=== PATIENT | female | born 1980 | race Caucasian/White ===

== ENCOUNTER 2016-08-07 03:17 | Inpatient (IN) | payer BC ==
[~2016-08-07] VITALS: Ht 170.2 cm; Wt 89.4 kg
[~2016-08-07 03:17] MED LIST: CLON0.5T3 PO; ESCI1TAB10 PO; MELO7.5T5 PO
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
[2016-08-07 04:30] LABS: BASO % 0.5 %; BASO ABS # 0.05 K/uL (0-0.2); COMPLETE YES; EOS % 1.2 %; IG% 0.2 %; LYMPH % 24.6 %; LYMPH ABS # 2.49 K/uL (1.2-3.4); MEAN CELL VOLUME 90.3 fL (80-100); MEAN CORPUSCULAR HEMOGLOBIN 32.2 pg (25-34); MEAN CORPUSCULAR HGB CONC 35.6 g/dl (32-36); MEAN PLATELET VOLUME 11.7 fL (7.4-10.4); MONO % 9.7 %; NEUT % 63.8 %; PLATELET COUNT 243 K/uL (130-400); RED BLOOD COUNT 4.32 M/uL (4.2-5.4); WHITE BLOOD COUNT 10.11 K/uL (4.8-10.8)
[2016-08-07 04:32] LABS: URINE APPEARANCE CLEAR (CLEAR); URINE BILIRUBIN NEG (NEG); URINE COLOR YELLOW; URINE NITRITE NEG (NEG); URINE SPECIFIC GRAVITY 1.004 (1.000-1.030); UROBILINOGEN NEG (NEG); ZZUR CULT IF INDIC CLEAN CATCH NO
[2016-08-07 04:35] LABS: MANUAL MICROSCOPIC REQUIRED? NO; REVIEW REQ? NO
[2016-08-07 04:54] LABS: ALT/SGPT 15 U/L (12-78); AST/SGOT 11 U/L (15-37); BLOOD UREA NITROGEN 12 mg/dl (7-18); BUN/CREATININE RATIO 17.2 (10-20); CALCIUM 9.2 mg/dl (8.5-10.1); CARBON DIOXIDE 21 mmol/L (21-32); CHLORIDE 109 mmol/L (98-107); CREATININE 0.68 mg/dl (0.60-1.20); GLUCOSE 103 mg/dl (70-99); POTASSIUM 3.4 mmol/L (3.5-5.1); SODIUM 142 mmol/L (136-145)
[2016-08-07 04:57] LABS: ALKALINE PHOSPHATASE 68 U/L (45-117)
[2016-08-07 05:01] LABS: ACETAMINOPHEN < 2 ug/ml (10-30)
[2016-08-07 05:07] LABS: BENZODIAZEPINE, URINE NEG (NEG); COCAINE,URINE NEG (NEG); PHENCYCLIDINE, URINE NEG (NEG)
[2016-08-07 07:09] VITALS: O2SAT 95
[2016-08-07] MEDS ORDERED: NURSING VERBAL MED ORDER ONE ×2 (07:30→07:45)
[2016-08-07] MEDS ORDERED: BISMUTH SUBSALICYLATE PER ML OMNICELL CHARGE PO PRN (08:30)
[2016-08-07] MEDS ORDERED: MAGNESIUM HYDROXIDE SUSP 30 ML UDC PO PRN (08:30)
[2016-08-07] MEDS ORDERED: CLONAZEPAM 0.5 MG TAB PO PRN ×2 (08:30→22:00)
[2016-08-07] MEDS ORDERED: ACETAMINOPHEN 325 MG TAB PO PRN (08:30)
[2016-08-07] MEDS ORDERED: SODIUM CHLORIDE 0.65% NA SOLN 45 ML (OCEAN) PRN (08:30)
[2016-08-07] MEDS ORDERED: hydrOXYzine HCL 25 MG TAB PO PRN ×2 (08:30)
[2016-08-07] MEDS ORDERED: ALUMINUM/MAGNESIUM SUSP 30 ML UDC PO PRN (08:30)
[2016-08-07 08:52] VITALS: BP 133/78; PULSE 121; TEMP 36.7; Ht 170.2 cm; Wt 89.4 kg
[2016-08-07] MEDS: ESCITALOPRAM OXALATE 20 MG TAB PO SCH (14:11)
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
[2016-08-07] MEDS: DOXEPIN HCL 10 MG CAP PO SCH (21:29)
[2016-08-08 07:12] VITALS: BP_SYST 103; BP_SYST 107; BP_DIAS 62; BP_DIAS 68; PULSE 67; PULSE 74; TEMP 36.6
[2016-08-08] MEDS: ESCITALOPRAM OXALATE 20 MG TAB PO SCH (09:01)
[2016-08-08] MEDS: MELOXICAM 7.5 MG TAB PO PRN ×2 (09:04→22:11)
--- NOTE | 2016-08-08 18:26 | Psychiatric Progress Notes ---
Progress Note Date of Service Aug 08, 2016. Interval History Siri Yang is a 36-year-old female who currently lives in [place] with her boyfriend. Siri Yang was admitted on a 201 voluntary commitment. Patient is admitted from [facility] ED. The patient was brought to the ED after she presented herself for worsening depression with suicidal ideations. Chief Complaint "I worked very hard today". Subjective Patient was seen & assessed interval progress reviewed with Treatment Team She slept 6.5hours overnight and appreciated the doxepin stating she felt she got rest and denies SE. 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 SHe again reverts to peseverating on the poor environment and her poor treatment at work but is more easily redirected today. She rates mood as a 5/10 and anxiety as 5/10 as well. She denies SI today but states "I need to get some of these things more secure because I am afraid if I feel overwhelmed again the hopelessness and suicidality will surge." Review of Systems constipation - "I was going daily prior to coming here but my outpatient doc tells me to take miralax if I get backed up" last BM two days ago, history of chronic constipation and megacolon. No abdominal pain Sleep Information Total Hours of Sleep: 6.50 Meal Information Percent of Breakfast Consumed: 100 Percent of Lunch Consumed: 100 Percent of Dinner Consumed: 100 Mental Status Exam During interview pt is: alert and oriented Appearance: appropriately dressed, disheveled (sitting in the quiet room on the floor mattress with wadded tissues quietly, minimal attention to personal detal but is clean and dressed) Eye contact is: fair Motor behavior is: steady gait & station Speech: normal in rate, rhythm & volume Affect: mood congruent, blunted Mood is: depressed, anxious Thought process: goal directed, perseveration (on work situation but more easily redirectable today) Thought content: preoccupation Suicidal thought are: denied, Plan: denied, Intent: denied Homicidal thoughts are: denied Hallucinations: denies auditory, denies visual Cognition: memory grossly intact Intelligence estimated to be: average Insight: limited Judgement: limited Impression Patient is a 36yo with chronic major depression and PTSD who is acutely depressed with worsening of chronic Si to include intention and plan, perseveration on her work sitauation externalizing and difficulty discussing any other aspect of her person at this time. She is voluntary for inpatient care. Continued Inpatient Care inpatient care is leas restrictive and most appropriate given we need to affirm aftercare assist with firming up her plans regarding her job and encouraging patient to act as that is the major precipitant to her SI and presentation Plan (1) Suicidal ideation - inpatient care is least restrictive and most appropriate setting for care - miliue, group and safety planning - attempt to address additional problems noted below (2) Major depressive disorder, recurrent episode with anxious distress 08/07/16 - patient declines increase of lexapro from 20mg to 30mg, and declines augmentation with wellbutrin but states she will consider - offered doxepin to assist wtih sleep, discussed r/b/se/a and she agreed to 10mg/hs dose in place of vistaril which she reported was not previously helpful - she is focussed on support helping her leave work in a supported way (e.g. asks about a prior intensive outpatient support or temporary disability) noted we would help her to make decisions within available options such as FMLA, OVR or psych rehab and/or career link 08/08/16 continue plan as above, she denies further med changes today (3) Benzodiazepine abuse it is unclear if she has been overusing she states she has not, will request records from Dr Huerta and given patient 's report of only getting 10 pills between appt will limit access here to one pil bid prn anxiety (4) Nicotine dependence offered NRT and she declined Brief counseling for smoking cessation given, patient is pre-contemplational about quitting at this time. (5) Chronic constipation 08/07/16 no acute intervention, recommend consistent activity and dietary choices that include fiber 08/08/16 will order miralax Discharge / Aftercare Planning Primary Care Physician: Name: dr shayna sims Psychiatrist: Name: dr henrique monsalve Therapist: Name: cosmo bolden Visit Code E&M Code: 73363 Inventory Assets Strengths: voluntary for care states she has been compliant with her lexapro and therapy Needs: support efforts to increase her locus of control Risk Factors Assessment : Yes /single/: Yes Higher / Fall in social status: No Health problems: Yes Mental Health Diagnoses: Yes Substance use disorders: Yes Previous attempt: Yes Previous attempt;highly lethal: No Previous attempt; planned: Yes Previous attempt; didn't tell: No Family history of suicide: No Previous psychiatric stay: Yes Hopelessness: Yes Smoker: Yes Protective Factors Assessment Mu-Ism beliefs: No : No Responsible for young children: No Employed: No Stable relationships: No Supportive family: No Good rapport with provider: Yes Data Vital Signs Last 24 Hrs: Date Time Temp Pulse Resp B/P Pulse Ox O2 Delivery O2 Flow Rate FiO2 08/08/16 07:12 36.6 67 16 107/62 74 103/68 Meds Administered Last 24 Hrs: Meds Administered (Past 24Hrs) Medications (Trade) Dose Ordered Sig/Sanam Route Start Time Stop Time Status Last Admin Dose Admin Acetaminophen (Tylenol Tab) 650 mg Q4H PRN PO 08/07/16 08:30 09/06/16 08:29 08/07/16 14:12 650 MG Escitalopram Oxalate (Lexapro Tab) 20 mg DAILY PO 08/07/16 09:00 09/06/16 08:59 08/08/16 09:01 20 MG Clonazepam (Klonopin Tab) 0.5 mg TID PRN PO 08/07/16 08:30 08/07/16 17:05 DC 08/07/16 08:32 0.5 MG Meloxicam (Mobic Tab) 7.5 mg DAILY PRN PO 08/07/16 08:30 09/06/16 08:29 08/08/16 09:04 7.5 MG Doxepin HCl (Sinequan Cap) 10 mg HS PO 08/07/16 22:00 09/06/16 21:59 08/07/16 21:29 10 MG Problem Qualifiers (1) Nicotine dependence: Nicotine product type: cigarettes
[2016-08-08] MEDS ORDERED: POLYETHYLENE (MIRALAX) 17 GM PACK PO PRN (21:15)
[2016-08-08] MEDS: DOXEPIN HCL 10 MG CAP PO SCH (22:11)
[2016-08-09 07:05] VITALS: BP_SYST 102; BP_SYST 97; BP_DIAS 63; BP_DIAS 69; PULSE 6; PULSE 84; TEMP 36.8
[2016-08-09] MEDS: ESCITALOPRAM OXALATE 20 MG TAB PO SCH (09:24)
[2016-08-09] MEDS: MELOXICAM 7.5 MG TAB PO PRN (09:26)
--- NOTE | 2016-08-09 12:21 | Psychiatric Progress Notes ---
Progress Note Date of Service Aug 09, 2016. Interval History Siri Yang is a 36-year-old female who currently lives in [place] with her boyfriend. Siri Yang was admitted on a 201 voluntary commitment. Patient is admitted from [facility] ED. The patient was brought to the ED after she presented herself for worsening depression with suicidal ideations. Chief Complaint "I've tried so hard. ". Subjective Patient was seen & assessed interval progress reviewed with Treatment Team. The patient is feeling hopeless, defeated today as she thinks about leaving her job. She reviews the stressors and the opposition she has met, feeling like there is no way she could advance in her current position given the dynamics in her office. She would like to take some time off to regroup and focus on herself. She would like to go back to [place] and retake some courses to build her confidence while she considers her job prospects. she lives with her boyfriend whom she describes as very support of her leaving her stressful job. She says that she wants to work, but also knows that she is not ready to jump right back into it now. She denies any further SI, but is feeling depressed and hopeless and does not feel ready for discharge at this time. Review of Systems Constitutional: No chills, No fatigue, No fever, No problem reported, No sweats , No weakness, No weight loss ENT: No dental problems, No hearing loss, No nasal symptoms, No problem reported, No sore throat, No tinnitus, No trouble swallowing, No unusual epistaxis Respiratory: No cough, No dyspnea at rest, No dyspnea on exertion, No hemoptysis, No problem reported, No shortness of breath, No sputum, No wheezing Cardiovascular: No PND, No chest pain, No claudication, No edema, No orthopnea , No palpitations, No problem reported Abdomen: No GI bleeding, No constipation, No diarrhea, No nausea, No pain, No problem reported, No vomiting Musculoskeletal: No calf pain, No joint pain, No muscle pain, No problem reported, No swelling Neurologic: No balance problems, No memory loss, No numbness/tingling, No paralysis, No problem reported, No vertigo, No weakness Psychiatric: + anxiety, + depression symptoms Integumentary: No bleeding, No color change, No itch, No new/changing skin lesions, No problem reported, No rash Sleep Information Total Hours of Sleep: 6.00 Meal Information Percent of Breakfast Consumed: 100 Percent of Lunch Consumed: 100 Percent of Dinner Consumed: 100 Mental Status Exam During interview pt is: alert and oriented Appearance: appropriately dressed, disheveled (sitting in the quiet room on the floor mattress with wadded tissues quietly, minimal attention to personal detal but is clean and dressed) Eye contact is: fair Motor behavior is: steady gait & station Speech: normal in rate, rhythm & volume Affect: mood congruent, blunted Mood is: depressed, anxious Thought process: goal directed, perseveration (on work situation but more easily redirectable today) Thought content: preoccupation Suicidal thought are: denied, Plan: denied, Intent: denied Homicidal thoughts are: denied Hallucinations: denies auditory, denies visual Cognition: memory grossly intact Intelligence estimated to be: average Insight: limited Judgement: limited Impression The patient is hopeless, depressed today, thinking about quitting her job. She denies SI but feels fragile and not ready for discharge today. She would like to stay another day and process with staff, which seems reasonable. Continue current meds. Continued Inpatient Care inpatient care is leas restrictive and most appropriate given we need to affirm aftercare assist with firming up her plans regarding her job and encouraging patient to act as that is the major precipitant to her SI and presentation Plan (1) Suicidal ideation - inpatient care is least restrictive and most appropriate setting for care - miliue, group and safety planning - attempt to address additional problems noted below 08/09 - Continue current meds -Q 15 min checks for safety - Encourage group and individual therapy. (2) Major depressive disorder, recurrent episode with anxious distress 08/07/16 - patient declines increase of lexapro from 20mg to 30mg, and declines augmentation with wellbutrin but states she will consider - offered doxepin to assist wtih sleep, discussed r/b/se/a and she agreed to 10mg/hs dose in place of vistaril which she reported was not previously helpful - she is focussed on support helping her leave work in a supported way (e.g. asks about a prior intensive outpatient support or temporary disability) noted we would help her to make decisions within available options such as FMLA, OVR or psych rehab and/or career link 08/08/16 continue plan as above, she denies further med changes today (3) Benzodiazepine abuse it is unclear if she has been overusing she states she has not, will request records from Dr Huerta and given patient 's report of only getting 10 pills between appt will limit access here to one pil bid prn anxiety (4) Nicotine dependence offered NRT and she declined Brief counseling for smoking cessation given, patient is pre-contemplational about quitting at this time. (5) Chronic constipation 08/07/16 no acute intervention, recommend consistent activity and dietary choices that include fiber 08/08/16 will order miralax Discharge / Aftercare Planning Primary Care Physician: Name: dr shayna sims Psychiatrist: Name: dr henrique monsalve Therapist: Name: cosmo bolden Visit Code E&M Code: 14538 Inventory Assets Strengths: voluntary for care states she has been compliant with her lexapro and therapy Needs: support efforts to increase her locus of control Risk Factors Assessment : Yes /single/: Yes Higher / Fall in social status: No Health problems: Yes Mental Health Diagnoses: Yes Substance use disorders: Yes Previous attempt: Yes Previous attempt;highly lethal: No Previous attempt; planned: Yes Previous attempt; didn't tell: No Family history of suicide: No Previous psychiatric stay: Yes Hopelessness: Yes Smoker: Yes Protective Factors Assessment Sabianist beliefs: No : No Responsible for young children: No Employed: No Stable relationships: No Supportive family: No Good rapport with provider: Yes Data Vital Signs Last 24 Hrs: Date Time Temp Pulse Resp B/P Pulse Ox O2 Delivery O2 Flow Rate FiO2 08/09/16 07:05 36.8 6 16 97/63 84 102/69 Meds Administered Last 24 Hrs: Meds Administered (Past 24Hrs) Medications (Trade) Dose Ordered Sig/Sanam Route Start Time Stop Time Status Last Admin Dose Admin Doxepin HCl (Sinequan Cap) 10 mg HS PO 08/07/16 22:00 09/06/16 21:59 08/08/16 22:11 10 MG Lab Results Last 24 Hrs: 08/07/16 03:42 Red Blood Count 4.32, Mean Corpuscular Volume 90.3, Mean Corpuscular Hemoglobin 32.2, Mean Corpuscular Hemoglobin Concent 35.6, Mean Platelet Volume 11.7, Neutrophils (%) (Auto) 63.8, Lymphocytes (%) (Auto) 24.6, Monocytes (%) (Auto) 9.7, Eosinophils (%) (Auto) 1.2, Basophils (%) (Auto) 0.5, Neutrophils # (Auto) 6.45, Lymphocytes # (Auto) 2.49, Monocytes # (Auto) 0.98, Eosinophils # (Auto) 0.12, Basophils # (Auto) 0.05 08/07/16 03:42 Test 08/07/16 03:42 White Blood Count 10.11 K/uL (4.8-10.8) Red Blood Count 4.32 M/uL (4.2-5.4) Hemoglobin 13.9 g/dL (12.0-16.0) Hematocrit 39.0 % (37-47) Mean Corpuscular Volume 90.3 fL (80-100) Mean Corpuscular Hemoglobin 32.2 pg (25-34) Mean Corpuscular Hemoglobin Concent 35.6 g/dl (32-36) Platelet Count 243 K/uL (130-400) Mean Platelet Volume 11.7 fL (7.4-10.4) Neutrophils (%) (Auto) 63.8 % Lymphocytes (%) (Auto) 24.6 % Monocytes (%) (Auto) 9.7 % Eosinophils (%) (Auto) 1.2 % Basophils (%) (Auto) 0.5 % Neutrophils # (Auto) 6.45 K/uL (1.4-6.5) Lymphocytes # (Auto) 2.49 K/uL (1.2-3.4) Monocytes # (Auto) 0.98 K/uL (0.11-0.59) Eosinophils # (Auto) 0.12 K/uL (0-0.5) Basophils # (Auto) 0.05 K/uL (0-0.2) RDW Standard Deviation 40.0 fL (36.4-46.3) RDW Coefficient of Variation 12.2 % (11.5-14.5) Immature Granulocyte % (Auto) 0.2 % Immature Granulocyte # (Auto) 0.02 K/uL (0.00-0.02) Urine Color YELLOW Urine Appearance CLEAR (CLEAR) Urine pH 5.0 (4.5-7.5) Urine Specific [place] 1.004 (1.000-1.030) Urine Protein NEG (NEG) Urine Glucose (UA) NEG (NEG) Urine Ketones NEG (NEG) Urine Occult Blood NEG (NEG) Urine Nitrite NEG (NEG) Urine Bilirubin NEG (NEG) Urine Urobilinogen NEG (NEG) Urine Leukocyte Esterase TRACE (NEG) Urine WBC (Auto) 1-5 /hpf (0-5) Urine RBC (Auto) 0-4 /hpf (0-4) Urine Hyaline Casts (Auto) 0 /lpf (0-5) Urine Epithelial Cells (Auto) 10-20 /lpf (0-5) Urine Bacteria (Auto) NEG (NEG) Anion Gap 12.0 mmol/L (3-11) Est Creatinine Clear Calc Drug Dose 131.3 ml/min Estimated GFR () 130.4 Estimated GFR (Non- 112.5 BUN/Creatinine Ratio 17.2 (10-20) Calcium Level 9.2 mg/dl (8.5-10.1) Total Bilirubin 0.3 mg/dl (0.2-1) Direct Bilirubin < 0.1 mg/dl (0-0.2) Aspartate Amino Transf (AST/SGOT) 11 U/L (15-37) Alanine Aminotransferase (ALT/SGPT) 15 U/L (12-78) Alkaline Phosphatase 68 U/L (45-117) Total Protein 8.1 gm/dl (6.4-8.2) Albumin 4.4 gm/dl (3.4-5.0) Salicylates Level < 1.7 mg/dl (2.8-20) Urine Opiates Screen NEG (NEG) Urine Methadone, Qualitative NEG (NEG) Acetaminophen Level < 2 ug/ml (10-30) Urine Barbiturates NEG (NEG) Urine Phencyclidine (PCP) Level NEG (NEG) Ur Amphetamine/Methamphetamine NEG (NEG) MDMA (Ecstasy) Screen NEG (NEG) Urine Benzodiazepines Screen NEG (NEG) Urine Cocaine Metabolite NEG (NEG) Urine Marijuana (THC) NEG (NEG) Ethyl Alcohol mg/dL 101.0 mg/dl (0-3) Problem Qualifiers (1) Nicotine dependence: Nicotine product type: cigarettes
[2016-08-09] MEDS: DOXEPIN HCL 10 MG CAP PO SCH (22:15)
[2016-08-09] MEDS ORDERED: NURSING VERBAL MED ORDER ONE (22:30)
[2016-08-09] MEDS ORDERED: MELOXICAM 7.5 MG TAB PO STA (22:32)
[2016-08-10 06:58] VITALS: BP_SYST 100; BP_SYST 98; BP_DIAS 57; BP_DIAS 64; PULSE 62; PULSE 82; TEMP 36.6
[2016-08-10] MEDS: ESCITALOPRAM OXALATE 20 MG TAB PO SCH (08:46)
[2016-08-10] MEDS ORDERED: SNQ10 PO (09:32)
[2016-08-10] MEDS ORDERED: CLON0.5T3 PO (09:32)
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
[2016-08-12 14:30] LABS: SYNTHETIC CANNABINOIDS QL URIN NEGATIVE (Negative)
== END 2016-08-10 11:42 | disposition home or self-care (01) | DRG 885 ==
LOC: C.EDB 03:19 → C.MHU 07:59
PROVIDERS: ADMIT Psychiatry & Neurology Psychiatry; ATTEND Psychiatry & Neurology Psychiatry
DX: F33.9 Major depressive disorder, recurrent, unspecified (principal); R45.851 Suicidal ideations; F13.20 Sedative, hypnotic or anxiolytic dependence, uncomplicated; F43.10 Post-traumatic stress disorder, unspecified; F41.9 Anxiety disorder, unspecified; E66.9 Obesity, unspecified; K59.09 Other constipation; F17.200 Nicotine dependence, unspecified, uncomplicated; Z68.30 Body mass index [BMI] 30.0-30.9, adult; Z79.899 Other long term (current) drug therapy; Z79.1 Long term (current) use of non-steroidal anti-inflammatories (NSAID)

== ENCOUNTER → 2017-01-24 | Outpatient (CLI) | payer OTHER ==
[~2017-01-24] MED LIST changes: +SNQ10 PO
--- NOTE | 2017-01-24 16:50 | DIAGNOSTIC IMAGING REPORT ---
CHEST 2 VIEWS ROUTINE HISTORY: COUGH COMPARISON: None. FINDINGS: The lungs are clear. Cardiac silhouette is normal in size. No pleural effusions. No pneumothorax. Mild pectus excavatum deformity. IMPRESSION: No acute process. Electronically signed by: Félix Shaikh M.D. 01/24/2017 4:49 PM Dictated Date/Time: 01/24/2017 4:35 PM
== END | disposition home or self-care (01) ==
LOC: C.RADBC 16:26
PROVIDERS: ATTEND Physician Assistant Medical
DX: R05 Cough (principal)

== ENCOUNTER → 2017-02-01 | Outpatient (CLI) | payer OTHER ==
[~2017-02-01] MED LIST changes: +GADAVIST IV PRN
--- NOTE | 2017-02-01 08:51 | DIAGNOSTIC IMAGING REPORT ---
MRI OF THE BRAIN COMBO INTERNAL ARTERY CANAL PROTOCOL CLINICAL HISTORY: Vertigo. Nausea. COMPARISON STUDY: CT of the brain dated 11/29/2012. TECHNIQUE: MRI of the brain was performed utilizing various T1 and T2-weighted sequences in the axial, sagittal, and coronal planes. Contrast-enhanced sequences were acquired following the administration of 8.5 cc of Gadavist. Additional high-resolution imaging was performed through the skull base both pre and postcontrast for assessment of the internal artery canals. FINDINGS: Brain parenchyma: The brain parenchyma is normal in appearance. There is no hemorrhage or mass effect. There is no restricted diffusion to suggest acute ischemia. No enhancing mass lesion is identified on the postcontrast images. Núñez-white matter differentiation is preserved. No extra-axial fluid collection is seen. The cerebellar tonsils are normal in configuration. Ventricles, sulci, and cisterns: Normal in configuration. Internal auditory canals: There is no enhancing mass lesion identified in the cerebellopontine angle. No mass lesion or abnormal enhancement is identified along the course of the internal auditory canals. The middle ear structures are normal as visualized. Pituitary and sella: Unremarkable. Intracranial vasculature: Normal flow voids are maintained at the skull base. Orbits: The bony orbits are grossly intact. Orbital contents are normal in appearance. Sinuses and mastoids: Clear. Calvarium: Unremarkable. Cervical cord: Partially visualized cervical spinal cord is normal in morphology and signal intensity. IMPRESSION: 1. No acute intracranial abnormality. 2. Unremarkable MRI assessment of the internal artery canals. Electronically signed by: Reed Goncalves M.D. 02/01/2017 8:50 AM Dictated Date/Time: 02/01/2017 8:45 AM
== END | disposition home or self-care (01) ==
LOC: C.MRIBC 07:31
PROVIDERS: ATTEND Physician Assistant Medical
DX: R42 Dizziness and giddiness (principal)

== ENCOUNTER → 2017-03-01 | Outpatient (CLI) | payer OTHER ==
[~2017-03-01] MED LIST changes: -GADAVIST IV PRN
[2017-03-01 11:19] LABS: BASO % 0.6 %; BASO ABS # 0.06 K/uL (0-0.2); COMPLETE YES; EOS % 1.7 %; HEMATOCRIT 39.9 % (37-47); IG% 0.2 %; LYMPH % 27.4 %; LYMPH ABS # 2.58 K/uL (1.2-3.4); MEAN CORPUSCULAR HEMOGLOBIN 32.6 pg (25-34); MEAN CORPUSCULAR HGB CONC 34.3 g/dl (32-36); MEAN PLATELET VOLUME 11.9 fL (7.4-10.4); MONO % 7.9 %; NEUT % 62.2 %; PLATELET COUNT 232 K/uL (130-400); WHITE BLOOD COUNT 9.41 K/uL (4.8-10.8)
[2017-03-01 14:28] LABS: ALT/SGPT 17 U/L (12-78); BLOOD UREA NITROGEN 10 mg/dl (7-18); BUN/CREATININE RATIO 14.6 (10-20); CALCIUM 9.3 mg/dl (8.5-10.1); CARBON DIOXIDE 25 mmol/L (21-32); CHLORIDE 110 mmol/L (98-107); GLUCOSE 95 mg/dl (70-99); SODIUM 140 mmol/L (136-145)
[2017-03-01 14:38] LABS: ALKALINE PHOSPHATASE 58 U/L (45-117); AST/SGOT 14 U/L (15-37)
== END | disposition home or self-care (01) ==
LOC: C.LABBC 09:17
PROVIDERS: ATTEND Physician Assistant Medical
DX: R55 Syncope and collapse (principal)

== ENCOUNTER → 2017-08-01 | Outpatient (CLI) | payer OTHER | END | disposition home or self-care (01) | LOC: C.PAPS 12:05 | PROVIDERS: ATTEND Physician Assistant Medical | DX: Z00.00 Encounter for general adult medical examination without abnormal findings (principal); Z12.4 Encounter for screening for malignant neoplasm of cervix ==

== ENCOUNTER 2018-09-04 12:38 | Inpatient (IN) ==
[2018-09-04 13:33] LABS: Basophils # (auto) 0.05 K/uL (0-0.2); Basophils % (auto) 0.6 %; Eosinophils # (auto) 0.14 K/uL (0-0.5); Eosinophils % (auto) 1.8 %; Hematocrit (blood only) 40.9 % (37-47); Hemoglobin 14.5 g/dL (12.0-16.0); Immature Granulocytes # (auto) 0.02 K/uL (0.00-0.02); Immature Granulocytes % (auto) 0.3 %; Lymphocytes # (auto) 2.32 K/uL (1.2-3.4); Lymphocytes % (auto) 30.1 %; Mean Corpuscular Hgb Conc 35.5 g/dL (32-36); Mean Corpuscular Volume 92.3 fL (80-100); Mean Platelet Volume 11.1 fL (7.4-10.4); Monocytes # (auto) 0.54 K/uL (0.11-0.59); Neutrophils # (auto) 4.64 K/uL (1.4-6.5); Neutrophils % (auto) 60.2 %; Platelet Count 299 K/uL (130-400); RDW Coefficient of Variation 12.3 % (11.5-14.5); RDW Standard Deviation 41.7 fL (36.4-46.3); Red Blood Count 4.43 M/uL (4.2-5.4); White Blood Count 7.71 K/uL (4.8-10.8)
[2018-09-04 13:50] LABS: BUN Creatinine Ratio 15.5 (10-20); Calcium 9.3 mg/dl (8.5-10.1); Creatinine Clr Calc Pharmacy 127.8 ml/min; Est GFR (African American) 130.5; Est GFR (Non-African American) 112.6; Potassium 3.8 mmol/L (3.5-5.1)
[2018-09-04 14:00] LABS: Bilirubin,Total 0.5 mg/dl (0.2-1); Globulin 4.1 gm/dl (2.5-4.0); Total Protein 8.1 gm/dl (6.4-8.2)
[2018-09-04 14:11] LABS: Acetaminophen < 2 ug/ml (10-30); Salicylate < 1.7 mg/dl (2.8-20)
[2018-09-04 14:16] LABS: Appearance Urine Clear (Clear); Bilirubin Urine Negative (Negative); Blood Urine Negative (Negative); Color Urine Yellow; Glucose Urine UA Negative (Negative); Ketones Urine Negative (Negative); Leukocyte Esterase Urine Negative (Negative); Nitrite Urine Negative (Negative); Protein Urine Negative (Negative); Specific Gravity Urine 1.023 (1.000-1.030); Urobilinogen Urine Negative (Negative)
[2018-09-04 14:23] LABS: Amphetamines+Metham, Urine Neg (Neg); Barbiturates, Urine Neg (Neg); Benzodiazepine, Urine Neg (Neg); Cocaine, Urine Neg (Neg); MDMA (Ecstacy), Urine Neg (Neg); Methadone, Urine Neg (Neg); Opiate, Urine Neg (Neg); Phencyclidine, Urine Neg (Neg)
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
[2018-09-04] MEDS ORDERED: ALUMINUM/MAGNESIUM SUSP 30 ML UDC PO PRN (15:39)
[2018-09-04] MEDS ORDERED: BISMUTH SUBSALICYLATE PER ML OMNICELL CHARGE PO PRN (15:39)
[2018-09-04] MEDS ORDERED: SODIUM CHLORIDE 0.65% NA SOLN 45 ML (OCEAN) PRN (15:39)
[2018-09-04] MEDS ORDERED: MAGNESIUM HYDROXIDE SUSP 30 ML UDC PO PRN (15:39)
[2018-09-04 18:11] VITALS: O2SAT 96
[2018-09-04] MEDS: ACETAMINOPHEN 325 MG TAB PO PRN (23:03)
[2018-09-05] MEDS: TRINTELLIX: ORDER AWAITING ACTION SCH ×3 (00:51→16:51)
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
[2018-09-05] MEDS: MELOXICAM 7.5 MG TAB PO PRN (11:18)
[2018-09-05] MEDS: POLYETHYLENE (MIRALAX) 17 GM PACK PO PRN (20:55)
[2018-09-05] MEDS: VORTIOXETINE HYDROBROMIDE PO SCH (21:32)
[2018-09-06] MEDS: POLYETHYLENE (MIRALAX) 17 GM PACK PO PRN ×2 (09:11→17:50)
[2018-09-06] MEDS: MELOXICAM 7.5 MG TAB PO PRN (11:21)
--- NOTE | 2018-09-06 11:26 | Psychiatric Progress Note ---
Date of Service September 06, 2018 Impression / Recommendations Impression Is attending all programming and attempting to incorporate coping strategies but still struggling with depressed mood and SI. Has had multiple trials of Wellbutrin in the past without benefit so see no need to try again. She is willing to explore the idea of going for longer term inpatient treatment, but this would have to be accomplised as an OP given the length of time it takes to process. Will continue with current meds and plan. (1) Major depressive disorder, recurrent episode with anxious distress: 09/05 -continue voluntary admission with suicide checks for safety. -Participate in groups and therapy, work on healthy coping skills and a discharge safety plan. -Coordinate with outpatient treatment team, including PA for recent medication trials. -Family meeting with boyfriend, and review safety plan. Specifically recommend medications in the home are locked and secured, so the patient will not have access to large amounts of pills, given her chronic suicidal ideation and history of multiple suicide attempts by overdose. Also recommend that guns be secured (although patient says they are not fireable in their current state as are antiques). -Per policy, medicinal [facility] -Continue home dose of vortixetine 20 mg at bedtime. BF bringing it in today. Discussed possibility of a trial of lithium for chronic SI and mood, but patient is reluctant, stating she doesn't like medications. She also expresses interest in maybe returning to escitalopram as it was helpful in the past. -Patient interested in exploring option of trauma program at [facility] - she doesn't feel able to contact her insurance to find out if it is covered, but is open to getting additional information. 09/06 - Assist the patient to explore insurance coverage of [facility] hospitalization - Continue current meds. Present on Admission?: Yes (2) PTSD (post-traumatic stress disorder): 09/05 - Continue home dose of vortioxetine. Consider switch to SSRI as above. -Patient is currently in trauma therapy, and discussed that actively working on her traumas and therapy can exacerbate symptoms in the short-term, but the long- term goal is to address these issues so that symptoms will decrease and functioning will improve. 09/06 - Explore and encourage mindfulness and grounding Present on Admission?: Yes (3) Constipation: 09/05 - Encourage high fiber diet, sufficient water intake, milk of magnesia prn. (4) Foot pain: 09/05 -patient may have shoes on unit per her request, as this helps with tendon problems/foot pain. Inventory Assets Strengths: Significant outpatient treatment/services, supportive boyfriend, stable housing Needs: Improved symptom control/functioning Risk Factors Assessment Male: No : Yes Do You Have Access To A Gun?: Yes (antique rifle and boyfriend has an antique handgun - not locked or secured) Health Problems: Yes Mental Health Diagnoses: Yes Substance Use Disorders: Yes (In remission) Previous Attempt: Yes Family History of Suicide: No Previous Psychiatric Hospitalization: Yes Hopelessness: Yes Smoker: No Protective Factors Assessment : No Responsible for Young Children: No Employed: No Stable Relationships: Yes Supportive Family: No Good Rapport with Provider: Yes Interval History Identifying Information 38 yo woman with PTSD and depression, admitted suicidality. She is admitted voluntarily Chief Complaint "I'm trying so hard". Review of Systems Sleep Information Total Hours of Sleep: 7 Sleep Comments: pt on q-15 minute checks Meal Information Percent Meal Consumed - Breakfast: 100 Percent Meal Consumed - Lunch: 100 Percent Meal Consumed - Dinner: 90 Subjective Subjective Patient was seen & assessed and interval progress reviewed with Treatment Team. The patient says that her mood is low today and still have distant thoughts of suicide but nothing active. She feels physically unwell today because of constipation which also worsens her mood. She talked about all of the therapy and people she has working with her presently to help her get better, but finds that sometimes she gets confused, hearing what the professionals say and then hearing her family in her head as well. She feels frustrated that she hasn't been able to take control of her problems and worries that she never will. She finds her boyfriend Tristian to be very supportive, but he has his own problems that he deals with. She and her BF are not intimate because of each of their problems and she fears that she will never be able to have an intimate relationship with anyone. She talked about the OP recommendations to go to [facility] inpatient treatment and she is afraid of being away from home for that long, and doesn't understand the financial consequences, but seems willing to explore it. We discussed the possible use of Wellbutrin, something her OP providers wanted to explore, but Siri says that she has been on that multiple times in the past in combination with other meds and never found it to be helpful. She describes the impact of her menstrual cycle saying that her mood gets worse over the course of the month, and really only has about 3 days where she feels "clear" after her period. Physical Exam Psychiatric Orientation: alert, oriented x 3 and cooperative Apperance: appropriately dressed and appropriately groomed Eye Contact: good eye contact Motor Behavior: steady gait and station and no abnormal motor movements Speech: normal rate/rhythm/volume of speech Affect: + depressed affect and + tearful affect Mood: + depressed mood Thought Process: goal directed thought process Thought Content: reality based without delusions Suicidal Thoughts: + reports suicidal thoughts Homicidal Thoughts: denies homicidal thoughts Hallucinations: no auditory hallucinations and no visual hallucinations Cognition: recent memory grossly intact, remote memory grossly intact, attention grossly intact and language grossly intact Estimated Intelligence: average estimated intelligence Insight: + impaired insight Judgement: + impaired judgement Vital Signs (Past 24 Hours) Last Vital Signs Temp 36.7 C 09/06/18 06:47 Pulse 92 H 09/06/18 06:48 Resp 16 09/06/18 06:47 BP 113/78 09/06/18 06:48 Pulse Ox 96 09/04/18 17:24 Results & Data Current Inpatient Medications Current Inpatient Medications: Current Inpatient Medications Acetaminophen (Tylenol) 650 mg PO Q4H PRN PRN Reason: Headache or Minor Fever Stop: 10/04/18 15:38 Last Admin: 09/04/18 23:03 Dose: 650 mg Documented by: Al Hydrox/Mg Hydrox/Simethicone (Maalox) 30 ml PO Q4H PRN PRN Reason: GI Upset Stop: 10/04/18 15:38 Bismuth Subsalicylate (Kaopectate) 15 ml PO PRN PRN PRN Reason: Loose Stool Stop: 10/04/18 15:38 Hydroxyzine HCl (Vistaril) 25 mg PO Q4H PRN PRN Reason: Anxiety Stop: 10/04/18 15:38 Hydroxyzine HCl (Vistaril) 50 mg PO HSZ PRN PRN Reason: Insomnia Stop: 10/04/18 15:46 Magnesium Hydroxide (Milk Of Magnesia) 30 ml PO DAILY PRN PRN Reason: Heartburn Stop: 10/04/18 15:38 Last Admin: 09/04/18 21:41 Dose: 30 ml Documented by: Meloxicam (Mobic) 15 mg PO DAILY PRN PRN Reason: Pain Stop: 10/05/18 08:59 Last Admin: 09/05/18 11:18 Dose: 15 mg Documented by: Polyethylene Glycol (Miralax Powder Packet) 17 gm PO BID PRN PRN Reason: Constipation Stop: 10/05/18 19:57 Last Admin: 09/06/18 09:11 Dose: 17 gm Documented by: Sodium Chloride ([place] Nasal) 1 - 2 sprays NA PRN PRN PRN Reason: Nasal Dryness/Congestion Stop: 10/04/18 15:38 Vortioxetine (Trintellix) 1 ea PO HS KANDI Stop: 10/05/18 21:59 Last Admin: 09/05/18 21:32 Dose: 1 ea Documented by: Post Discharge Appointments Primary Care Physician Name Of Family Doctor: [facility] - Dr. Rivera Marie Primary Care Provider Appointment Comment: [address] [facility] [address] Psychiatrist Name of Psychiatrist: Sharimla Thakkar PA-C Psychiatrist's Date of Appointment with Psychiatrist: 09/19/18 Time of Appointment with Psychiatrist: 1:15 p.m. Psychiatric Appointment Comment: [id number] [facility], [place] Therapist Name of Therapist: Sharmila Garcia Therapist's Date of Therapist Appointment: 09/13/18 Time of Therapist Appointment: 11:00 a.m. Therapy Appointment Comment: [address] [employer] [facility] [place] [employer] Name of [employer] Director [employer]: [employer]en Melgoza Phone Number for Media [employer] Director [employer]: [phone] Specialist Name of Specialist: Trauma Therapist - Karlene Abraham Phone Number for Specialist: Specialty Appointment Comment: [address] [place] [address] Contact Information Discharge Discharge Address: [address] [place] [address], [place] [address] CPT Code CPT Code 63644
[2018-09-06] MEDS: VORTIOXETINE HYDROBROMIDE PO SCH (21:10)
[2018-09-06] MEDS: ACETAMINOPHEN 325 MG TAB PO PRN (23:05)
[2018-09-07] MEDS: ACETAMINOPHEN 325 MG TAB PO PRN (11:26)
--- NOTE | 2018-09-07 14:26 | Psychiatric Progress Note ---
Date of Service September 07, 2018 Impression / Recommendations Impression Pt continues to be invested in unit programming and takes advantage of 1:1 counseling sessions which she thinks are most beneficial. She admits to ongoing SI since admission, but states she is trying to "fight it". She remains willing for an long-term inpatient admission with focus on trauma. She is understanding it is most likely an outpatient process, and that current goal is to establish safety and aftercare plan which would allow her to return home to continue this process. Given ongoing SI, inpatient psychiatric admission remains medically necessary, as she is not able to contract for safety outside of the hospital and has multiple risks for self harm or suicide attempts if discharged prematurely. (1) Major depressive disorder, recurrent episode with anxious distress: 09/05 -continue voluntary admission with suicide checks for safety. -Participate in groups and therapy, work on healthy coping skills and a discharge safety plan. -Coordinate with outpatient treatment team, including PA for recent medication trials. -Family meeting with boyfriend, and review safety plan. Specifically recommend medications in the home are locked and secured, so the patient will not have access to large amounts of pills, given her chronic suicidal ideation and history of multiple suicide attempts by overdose. Also recommend that guns be secured (although patient says they are not fireable in their current state as are antiques). -Per policy, medicinal marijuana will not be provided on the [facility]. -Continue home dose of vortixetine 20 mg at bedtime. BF bringing it in today. Discussed possibility of a trial of lithium for chronic SI and mood, but patient is reluctant, stating she doesn't like medications. She also expresses interest in maybe returning to escitalopram as it was helpful in the past. -Patient interested in exploring option of trauma program at [facility] - she doesn't feel able to contact her insurance to find out if it is covered, but is open to getting additional information. 09/06 - Assist the patient to explore insurance coverage of [facility] hospitalization - Continue current meds. 09/07 - Continue current medication regimen - Continuing to gather insurance and charitable funding for long-term hospitalization (2) PTSD (post-traumatic stress disorder): 09/05 - Continue home dose of vortioxetine. Consider switch to SSRI as above. -Patient is currently in trauma therapy, and discussed that actively working on her traumas and therapy can exacerbate symptoms in the short-term, but the long- term goal is to address these issues so that symptoms will decrease and functioning will improve. 09/06 - Explore and encourage mindfulness and grounding (3) Constipation: 09/05 - Encourage high fiber diet, sufficient water intake, milk of magnesia prn. (4) Foot pain: 09/05 -patient may have shoes on unit per her request, as this helps with tendon problems/foot pain. Inventory Assets Strengths: Significant outpatient treatment/services, supportive boyfriend, stable housing Needs: Improved symptom control/functioning Risk Factors Assessment Male: No : Yes Do You Have Access To A Gun?: Yes (antique rifle and boyfriend has an antique handgun - not locked or secured) Health Problems: Yes Mental Health Diagnoses: Yes Substance Use Disorders: Yes (In remission) Previous Attempt: Yes Family History of Suicide: No Previous Psychiatric Hospitalization: Yes Hopelessness: Yes Smoker: No Protective Factors Assessment : No Responsible for Young Children: No Employed: No Stable Relationships: Yes Supportive Family: No Good Rapport with Provider: Yes Interval History Identifying Information 38 yo woman with PTSD and depression, admitted suicidality. She is admitted voluntarily. Chief Complaint "Today has been exhausting". Review of Systems Notes Constitutional: reports "cloudiness" having just taken hydroxyzine Cardiovascular: denied Respiratory: denied Gastrointestinal: denied Neurological: denied Psychiatric: denies symptoms other than stated above Total of at least 10 systems reviewed, pertinent positives as above and in HPI. Sleep Information Total Hours of Sleep: 6 Sleep Comments: pt appeared to be asleep @[place] and thereafter. pt on hq-15 minute checks Meal Information Percent Meal Consumed - Breakfast: 100 Percent Meal Consumed - Lunch: 100 Percent Meal Consumed - Dinner: 100 Subjective Subjective Patient was seen & assessed and interval progress reviewed with Nursing. Staff report the patient's current desire is for placement in a long-term inpatient trauma program. Information is being gathered, to assist in this process. Pt was seen today to assess progress since admission. Pt states she has had a difficult day today. She had meetings both with her block and case maker, and then another involving her boyfriend. Pt states she is overwhelmed with searching for a trauma treatment facility, but is appreciative of the support that has been provided. Pt admits, "I have to do it, I go to appointments now and I have to keep a lid on things. They don't want me to leave upset, I have to drive home, I have to function. I don't think they know just how much is buried in there." Pt admits to ongoing SI, stating it has been persistent but she has been attempting to fight it. Continues to decline medication adjustments. Physical Exam Psychiatric Orientation: alert, oriented x 3 and cooperative Apperance: appropriately dressed and appropriately groomed Eye Contact: good eye contact Motor Behavior: steady gait and station and no abnormal motor movements Speech: normal rate/rhythm/volume of speech Affect: + depressed affect Mood: + depressed mood ("exhausted" and "just not sure that things will get better") and + anxious mood (due to topics discussed during meetings) Thought Process: goal directed thought process, linear/logical thought process and clear/coherent thought process Thought Content: reality based without delusions Suicidal Thoughts: + reports suicidal thoughts SI is persistent, admits desire to "fight it" Homicidal Thoughts: denies homicidal thoughts Hallucinations: no auditory hallucinations and no visual hallucinations Cognition: recent memory grossly intact, remote memory grossly intact, attention grossly intact and language grossly intact Estimated Intelligence: average estimated intelligence Insight: + fair insight Judgement: + fair judgement Vital Signs (Past 24 Hours) Last Vital Signs Temp 36.4 C L 09/07/18 06:45 Pulse 80 09/07/18 06:45 Resp 16 09/07/18 06:45 BP 119/84 09/07/18 06:45 Pulse Ox 96 09/04/18 17:24 Results & Data Laboratory Results Laboratory Results - last 24 hr 09/04/18 13:04 U Marijuana THC Carboxy 234 A Current Inpatient Medications Current Inpatient Medications: Current Inpatient Medications Acetaminophen (Tylenol) 650 mg PO Q4H PRN PRN Reason: Headache or Minor Fever Stop: 10/04/18 15:38 Last Admin: 09/07/18 11:26 Dose: 650 mg Documented by: Al Hydrox/Mg Hydrox/Simethicone (Maalox) 30 ml PO Q4H PRN PRN Reason: GI Upset Stop: 10/04/18 15:38 Bismuth Subsalicylate (Kaopectate) 15 ml PO PRN PRN PRN Reason: Loose Stool Stop: 10/04/18 15:38 Hydroxyzine HCl (Vistaril) 25 mg PO Q4H PRN PRN Reason: Anxiety Stop: 10/04/18 15:38 Last Admin: 09/07/18 12:30 Dose: 25 mg Documented by: Hydroxyzine HCl (Vistaril) 50 mg PO HSZ PRN PRN Reason: Insomnia Stop: 10/04/18 15:46 Magnesium Hydroxide (Milk Of Magnesia) 30 ml PO DAILY PRN PRN Reason: Heartburn Stop: 10/04/18 15:38 Last Admin: 09/04/18 21:41 Dose: 30 ml Documented by: Meloxicam (Mobic) 15 mg PO DAILY PRN PRN Reason: Pain Stop: 10/05/18 08:59 Last Admin: 09/06/18 11:21 Dose: 15 mg Documented by: Polyethylene Glycol (Miralax Powder Packet) 17 gm PO BID PRN PRN Reason: Constipation Stop: 10/05/18 19:57 Last Admin: 09/06/18 17:50 Dose: 17 gm Documented by: Sodium Chloride ([place] Nasal) 1 - 2 sprays NA PRN PRN PRN Reason: Nasal Dryness/Congestion Stop: 10/04/18 15:38 Vortioxetine (Trintellix) 1 ea PO HS KANDI Stop: 10/05/18 21:59 Last Admin: 09/06/18 21:10 Dose: 1 ea Documented by: Post Discharge Appointments Primary Care Physician Name Of Family Doctor: [facility] - Dr. Rivera Marie Primary Care Provider Appointment Comment: [address] [facility], [place] [address] Psychiatrist Name of Psychiatrist: Sharmila Thakkar PA-C Psychiatrist's Date of Appointment with Psychiatrist: 09/19/18 Time of Appointment with Psychiatrist: 1:15 p.m. Psychiatric Appointment Comment: [id number] [place], [place] Therapist Name of Therapist: Sharmila Garcia Therapist's Date of Therapist Appointment: 09/13/18 Time of Therapist Appointment: 11:00 a.m. Therapy Appointment Comment: [address] [place], [place] Manager Risk Management Name of Manager Risk Management: [facility] - Hellen Melgoza Phone Number for Manager Risk Management: [phone] Date of Appointment with Manager Risk Management: 09/12/18 Time of Appointment with Manager Risk Management: 8:30 a.m. Case Management Appointment Comment: will meet you at your funeral home associate Name of Specialist: Trauma Therapist - Karlene Abraham Phone Number for Specialist: Specialty Appointment Comment: [address], [place], [place] [address] Contact Information [facility]charge Discharge [facility] [place] [address] CPT Code CPT Code 90789
[2018-09-07] MEDS: VORTIOXETINE HYDROBROMIDE PO SCH (21:30)
[2018-09-08] MEDS: VORTIOXETINE HYDROBROMIDE PO SCH ×2 (09:35→21:21)
--- NOTE | 2018-09-08 15:32 | Communication Note ---
Date of Service: September 08, 2018 I met with the patient today in order to assess her current mental status, evaluate her response to treatment, and review her current treatment plan in order to make any changes that may be necessary. It is somewhat striking about this patient is that her affect appears to be fairly bright when she is interacting with peers, but in individual and group therapy sessions she tends to become tearful and more withdrawn. She continues to endorse at least fleeting thoughts of suicide, and in individual and group therapies she is working on developing improved coping strategies, managing feelings of isolation, identifying ways of developing a more expansive support network, and finding ways of obtaining support without feeling as if she is burdening other people, particularly friends and family members. The patient indicates that she is tolerating her current medications well, and does report that she feels that she has been improving. However, given the ongoing suicidal thoughts and emotional instability, inpatient psychiatric hospitalization remains the least intensive level of care consistent with her clinical needs. I have reviewed her current treatment plan and in agreement with it. On mental status examination today the patient's affect ranges from euthymic to tearful. She describes her mood as depressed, but "better." There is no evidence of any current psychotic features. The patient reports that she does continue to have thoughts of suicide, but contracts for safety in the hospital. The patient's insight is fair, and she demonstrates reasonable judgment.
--- NOTE | 2018-09-08 16:28 | Psychiatric Progress Note ---
Date of Service September 08, 2018 Impression / Recommendations Impression Today, the patient reports that she is feeling somewhat better. However, her affect remains labile, and ranges from fairly bright to tearful and depressed. She describes feeling vulnerable and also reports issues of trust. We discussed the development of a support network, and although she says that her boyfriend and members of her family are generally supportive she feels guilty about burdening and says that she can sometimes sense that she is overwhelming people when she tries to talk about her problems and emotional distress. The patient continues to report suicidal ideation and indicates that she does not yet feel safe to leave the hospital. Given ongoing SI, inpatient psychiatric admission remains medically necessary, as she is not able to contract for safety outside of the hospital and has multiple risks for self harm or suicide attempts if discharged prematurely. (1) Major depressive disorder, recurrent episode with anxious distress: 09/05 -continue voluntary admission with suicide checks for safety. -Participate in groups and therapy, work on healthy coping skills and a discharge safety plan. -Coordinate with outpatient treatment team, including PA for recent medication trials. -Family meeting with boyfriend, and review safety plan. Specifically recommend medications in the home are locked and secured, so the patient will not have access to large amounts of pills, given her chronic suicidal ideation and history of multiple suicide attempts by overdose. Also recommend that guns be secured (although patient says they are not fireable in their current state as are antiques). -Per policy, medicinal marijuana will not be provided on the [facility]. -Continue home dose of vortixetine 20 mg at bedtime. BF bringing it in today. Discussed possibility of a trial of lithium for chronic SI and mood, but patient is reluctant, stating she doesn't like medications. She also expresses interest in maybe returning to escitalopram as it was helpful in the past. -Patient interested in exploring option of trauma program at [facility] - she doesn't feel able to contact her insurance to find out if it is covered, but is open to getting additional information. 09/06 - Assist the patient to explore insurance coverage of custodial hospitalization - Continue current meds. 09/07 - Continue current meds. 09/08 -Continue current meds. -Continue individual, group, activity and milieu therapy. - Explore insurance and donated funds for longer term psychiatric inpatient treatment. 09/08 - (2) PTSD (post-traumatic stress disorder): 09/05 - Continue home dose of vortioxetine. Consider switch to SSRI as above. -Patient is currently in trauma therapy, and discussed that actively working on her traumas and therapy can exacerbate symptoms in the short-term, but the long- term goal is to address these issues so that symptoms will decrease and functioning will improve. 09/06 - Explore and encourage mindfulness and grounding 09/08 - Trauma informed care. -Continue to explore and encourage mindfulness and grounding (3) Constipation: 09/05 - Encourage high fiber diet, sufficient water intake, milk of magnesia prn. (4) Foot pain: 09/05 -patient may have shoes on unit per her request, as this helps with tendon problems/foot pain. Inventory Assets Strengths: Significant outpatient treatment/services, supportive boyfriend, stable housing Needs: Improved symptom control/functioning Risk Factors Assessment Male: No : Yes Do You Have Access To A Gun?: Yes (antique rifle and boyfriend has an antique handgun - not locked or secured) Health Problems: Yes Mental Health Diagnoses: Yes Substance Use Disorders: Yes (In remission) Previous Attempt: Yes Family History of Suicide: No Previous Psychiatric Hospitalization: Yes Hopelessness: Yes Smoker: No Protective Factors Assessment : No Responsible for Young Children: No Employed: No Stable Relationships: Yes Supportive Family: No Good Rapport with Provider: Yes Interval History Identifying Information 38 yo woman with PTSD and depression, admitted suicidality. She is admitted voluntarily. Chief Complaint "Depression". Review of Systems Sleep Information Total Hours of Sleep: 6 Sleep Comments: pt on q-15 minute checks. pt given vistaril per rn. Meal Information Percent Meal Consumed - Breakfast: 90 Percent Meal Consumed - Lunch: 100 Percent Meal Consumed - Dinner: 100 Subjective Subjective Patient was seen & assessed and interval progress reviewed with Treatment Team. I personally met with the patient today in order to assess her current mental status, evaluate her response to treatment, and review her current treatment plan in order to make any changes that may be necessary. It is somewhat striking about this patient is that her affect appears to be fairly bright when she is interacting with peers, but in individual and group therapy sessions she tends to become tearful and more withdrawn. She continues to endorse at least fleeting thoughts of suicide, and in individual and group therapies she is working on developing improved coping strategies, managing feelings of isolation, identifying ways of developing a more expansive support network, and finding ways of obtaining support without feeling as if she is burdening other people, particularly friends and family members. The patient indicates that she is tolerating her current medications well, and does report that she feels that she has been improving. Physical Exam Psychiatric Orientation: alert and oriented x 3 Apperance: appropriately dressed and appropriately groomed Eye Contact: + fair eye contact Motor Behavior: + tremor Engages in self soothing behavior such as rubbing her forearms or thighs with her hands. Speech: normal rate/rhythm/volume of speech Affect: + tearful affect The patient's affect varies. When observed interacting with her peers, she seems fairly bright, animated and calm. However, she becomes very anxious and tearful when asked to focus on herself, her history, and her treatment. Mood: + depressed mood Thought Process: linear/logical thought process Thought Content: reality based without delusions Suicidal Thoughts: + reports suicidal thoughts Homicidal Thoughts: denies homicidal thoughts Hallucinations: no auditory hallucinations Cognition: recent memory grossly intact, attention grossly intact and language grossly intact Estimated Intelligence: average estimated intelligence Insight: + fair insight Judgement: + fair judgement Vital Signs (Past 24 Hours) Last Vital Signs Temp 36.7 C 09/08/18 08:06 Pulse 75 09/08/18 08:06 Resp 16 09/08/18 08:06 BP 113/68 09/08/18 08:06 Pulse Ox 96 09/04/18 17:24 Results & Data Current Inpatient Medications Current Inpatient Medications: Current Inpatient Medications Acetaminophen (Tylenol) 650 mg PO Q4H PRN PRN Reason: Headache or Minor Fever Stop: 10/04/18 15:38 Last Admin: 09/07/18 11:26 Dose: 650 mg Documented by: Al Hydrox/Mg Hydrox/Simethicone (Maalox) 30 ml PO Q4H PRN PRN Reason: GI Upset Stop: 10/04/18 15:38 Bismuth Subsalicylate (Kaopectate) 15 ml PO PRN PRN PRN Reason: Loose Stool Stop: 10/04/18 15:38 Hydroxyzine HCl (Vistaril) 25 mg PO Q4H PRN PRN Reason: Anxiety Stop: 10/04/18 15:38 Last Admin: 09/08/18 09:48 Dose: 25 mg Documented by: Hydroxyzine HCl (Vistaril) 50 mg PO HSZ PRN PRN Reason: Insomnia Stop: 10/04/18 15:46 Last Admin: 09/07/18 21:26 Dose: 50 mg Documented by: Magnesium Hydroxide (Milk Of Magnesia) 30 ml PO DAILY PRN PRN Reason: Heartburn Stop: 10/04/18 15:38 Last Admin: 09/04/18 21:41 Dose: 30 ml Documented by: Meloxicam (Mobic) 15 mg PO DAILY PRN PRN Reason: Pain Stop: 10/05/18 08:59 Last Admin: 09/06/18 11:21 Dose: 15 mg Documented by: Polyethylene Glycol (Miralax Powder Packet) 17 gm PO BID PRN PRN Reason: Constipation Stop: 10/05/18 19:57 Last Admin: 09/06/18 17:50 Dose: 17 gm Documented by: Sodium Chloride ([place] Nasal) 1 - 2 sprays NA PRN PRN PRN Reason: Nasal Dryness/Congestion Stop: 10/04/18 15:38 Vortioxetine (Trintellix) 1 ea PO HS KANDI Stop: 10/05/18 21:59 Last Admin: 09/08/18 09:35 Dose: Not Given Documented by: Post Discharge Appointments Primary Care Physician Name Of Family Doctor: [facility] - Dr. Rivera Marie Primary Care Provider Appointment Comment: [address] [place] [address] Psychiatrist Name of Psychiatrist: Sharmila Thakkar PA-C Psychiatrist's Date of Appointment with Psychiatrist: 09/19/18 Time of Appointment with Psychiatrist: 1:15 p.m. Psychiatric Appointment Comment: [address], [place], [place] Therapist Name of Therapist: Sharmila Garcia Therapist's Date of Therapist Appointment: 09/13/18 Time of Therapist Appointment: 11:00 a.m. Therapy Appointment Comment: [address] [place], [place] Crib Clerk Name of Crib Clerk: [employer] - Hellen Melgoza Phone Number for Crib Clerk: [phone] Date of Appointment with Crib Clerk: 09/12/18 Time of Appointment with Crib Clerk: 8:30 a.m. Case Management Appointment Comment: will meet you at your mobile home technician Name of Specialist: Trauma Therapist - Karlene Abraham Phone Number for Specialist: Date of Appointment with Specialist: 09/14/18 Time of Appointment with Specialist: 3 pm Specialty Appointment Comment: [address] [place], [place] [address] Contact Information Discharge Discharge Address: [facility] [address], [place], [place] [address] CPT Code CPT Code 23375
[2018-09-08] MEDS: POLYETHYLENE (MIRALAX) 17 GM PACK PO PRN (20:26)
[2018-09-08] MEDS: MELOXICAM 7.5 MG TAB PO PRN (21:21)
--- NOTE | 2018-09-09 07:54 | Psychiatric Progress Note ---
Date of Service September 09, 2018 Impression / Recommendations Impression Interaction with patient today was highly suggestive of ongoing thoughts of hopelessness - frequently commenting about how treatment has been ineffective for years, continuing is pointless, and feeling she won't get into a long-term inpatient facility to tackle the root of her concerns. Despite attempts to direct focus toward the hope in her situation, patient placed barriers as to why she will likely not be successful. She continues to report suicidality, similar to her chronic suicidal concerns. She is unable to contract for safety outside of the inpatient setting. Given ongoing SI, inpatient psychiatric admission remains medically necessary, as she is not able to contract for safety outside of the hospital and has multiple risks for self harm or suicide attempts if discharged prematurely. (1) Major depressive disorder, recurrent episode with anxious distress: 09/05 -continue voluntary admission with suicide checks for safety. -Participate in groups and therapy, work on healthy coping skills and a discharge safety plan. -Coordinate with outpatient treatment team, including PA for recent medication trials. -Family meeting with boyfriend, and review safety plan. Specifically recommend medications in the home are locked and secured, so the patient will not have access to large amounts of pills, given her chronic suicidal ideation and history of multiple suicide attempts by overdose. Also recommend that guns be secured (although patient says they are not fireable in their current state as are antiques). -Per policy, medicinal marijuana will not be provided on the [facility]. -Continue home dose of vortixetine 20 mg at bedtime. BF bringing it in today. Discussed possibility of a trial of lithium for chronic SI and mood, but patient is reluctant, stating she doesn't like medications. She also expresses interest in maybe returning to escitalopram as it was helpful in the past. -Patient interested in exploring option of trauma program at [facility] - she doesn't feel able to contact her insurance to find out if it is covered, but is open to getting additional information. 09/06 - Assist the patient to explore insurance coverage of fdc hospitalization - Continue current meds. 09/07 - Continue current meds. 09/08 -Continue current meds. -Continue individual, group, activity and milieu therapy. - Explore insurance and donated funds for longer term psychiatric inpatient treatment. 09/09 - Continue as above. No medication adjustments - Continue to encourage patient to advocate for her needs on the unit, as she openly reports feeling they cannot be addressed in the group setting (2) PTSD (post-traumatic stress disorder): 09/05 - Continue home dose of vortioxetine. Consider switch to SSRI as above. -Patient is currently in trauma therapy, and discussed that actively working on her traumas and therapy can exacerbate symptoms in the short-term, but the long- term goal is to address these issues so that symptoms will decrease and functioning will improve. 09/06 - Explore and encourage mindfulness and grounding 09/08 - Trauma informed care. -Continue to explore and encourage mindfulness and grounding (3) Constipation: 09/05 - Encourage high fiber diet, sufficient water intake, milk of magnesia prn. (4) Foot pain: 09/05 -patient may have shoes on unit per her request, as this helps with tendon problems/foot pain. Inventory Assets Strengths: Significant outpatient treatment/services, supportive boyfriend, stable housing Needs: Improved symptom control/functioning Risk Factors Assessment Male: No : Yes Do You Have Access To A Gun?: Yes (antique rifle and boyfriend has an antique handgun - not locked or secured) Health Problems: Yes Mental Health Diagnoses: Yes Substance Use Disorders: Yes (In remission) Previous Attempt: Yes Family History of Suicide: No Previous Psychiatric Hospitalization: Yes Hopelessness: Yes Smoker: No Protective Factors Assessment : No Responsible for Young Children: No Employed: No Stable Relationships: Yes Supportive Family: No Good Rapport with Provider: Yes Interval History Identifying Information 38 yo woman with PTSD and depression, admitted suicidality. She is admitted voluntarily. Chief Complaint "Things were up and down there for a while." Review of Systems Notes Constitutional: reports mild fatigue Cardiovascular: denied Respiratory: denied Gastrointestinal: denied Neurological: denied Psychiatric: denies symptoms other than stated above Total of at least 10 systems reviewed, pertinent positives as above and in HPI. Sleep Information Total Hours of Sleep: 6 Sleep Comments: received an hs dose of vistaril for sleep aid. Meal Information Percent Meal Consumed - Breakfast: 90 Percent Meal Consumed - Lunch: 100 Percent Meal Consumed - Dinner: 80 Subjective Subjective Patient was seen & assessed and interval progress reviewed with Nursing. Pt reports having difficulty today processing the length of time it may take for placement in to a long-term inpatient trauma program. She reports feeling as though it is a "lost cause", and suggests she has been losing hope. Pt continues to state she has been trying to "help some of the younger kids, I say encouraging things so that way they can get a lot out of their time here. That way they don't end up like me." Pt was again reminded that her treatment should be most important to her, and that if she has needs that are not being met, it would be helpful to share. She states, "it's just been going on for so long, at some point I just won't be able to do it anymore, at some point I may give up." She continues to experience continued chronic suicidality while on the unit, and remains unable to contract for safety should she be out of the hospital. Physical Exam Psychiatric Orientation: alert, oriented x 3 and cooperative Apperance: appropriately groomed and appeared stated age Eye Contact: good eye contact Motor Behavior: steady gait and station and no abnormal motor movements Speech: normal rate/rhythm/volume of speech Affect: + depressed affect and + tearful affect Mood: + depressed mood (hopeless theme to conversations - "up and down for a while") Thought Process: goal directed thought process, linear/logical thought process and clear/coherent thought process Thought Content: reality based without delusions Suicidal Thoughts: + reports suicidal thoughts Homicidal Thoughts: denies homicidal thoughts Hallucinations: no auditory hallucinations and no visual hallucinations Cognition: recent memory grossly intact, remote memory grossly intact, attention grossly intact and language grossly intact Estimated Intelligence: average estimated intelligence Insight: + impaired insight Judgement: + impaired judgement Vital Signs (Past 24 Hours) Last Vital Signs Temp 36.7 C 09/09/18 06:26 Pulse 93 H 09/09/18 06:27 Resp 18 09/09/18 06:26 BP 114/74 09/09/18 06:27 Pulse Ox 96 09/04/18 17:24 Results & Data Current Inpatient Medications Current Inpatient Medications: Current Inpatient Medications Acetaminophen (Tylenol) 650 mg PO Q4H PRN PRN Reason: Headache or Minor Fever Stop: 10/04/18 15:38 Last Admin: 09/07/18 11:26 Dose: 650 mg Documented by: Al Hydrox/Mg Hydrox/Simethicone (Maalox) 30 ml PO Q4H PRN PRN Reason: GI Upset Stop: 10/04/18 15:38 Bismuth Subsalicylate (Kaopectate) 15 ml PO PRN PRN PRN Reason: Loose Stool Stop: 10/04/18 15:38 Hydroxyzine HCl (Vistaril) 25 mg PO Q4H PRN PRN Reason: Anxiety Stop: 10/04/18 15:38 Last Admin: 09/08/18 09:48 Dose: 25 mg Documented by: Hydroxyzine HCl (Vistaril) 50 mg PO HSZ PRN PRN Reason: Insomnia Stop: 10/04/18 15:46 Last Admin: 09/08/18 22:57 Dose: 50 mg Documented by: Magnesium Hydroxide (Milk Of Magnesia) 30 ml PO DAILY PRN PRN Reason: Heartburn Stop: 10/04/18 15:38 Last Admin: 09/04/18 21:41 Dose: 30 ml Documented by: Meloxicam (Mobic) 15 mg PO DAILY PRN PRN Reason: Pain Stop: 10/05/18 08:59 Last Admin: 09/08/18 21:21 Dose: 15 mg Documented by: Polyethylene Glycol (Miralax Powder Packet) 17 gm PO BID PRN PRN Reason: Constipation Stop: 10/05/18 19:57 Last Admin: 09/08/18 20:26 Dose: 17 gm Documented by: Sodium Chloride ([place] Nasal) 1 - 2 sprays NA PRN PRN PRN Reason: Nasal Dryness/Congestion Stop: 10/04/18 15:38 Vortioxetine (Trintellix) 1 ea PO HS KANDI Stop: 10/05/18 21:59 Last Admin: 09/08/18 21:21 Dose: 1 ea Documented by: Post Discharge Appointments Primary Care Physician Name Of Family Doctor: [facility] - Dr. Rivera Marie Primary Care Provider Appointment Comment: [address] [place] [address] Psychiatrist Name of Psychiatrist: Sharmila Thakkar PA-C Psychiatrist's Date of Appointment with Psychiatrist: 09/19/18 Time of Appointment with Psychiatrist: 1:15 p.m. Psychiatric Appointment Comment: [address] [facility], [place], [place] Therapist Name of Therapist: Sharmila Garcia Therapist's Date of Therapist Appointment: 09/13/18 Time of Therapist Appointment: 11:00 a.m. Therapy Appointment Comment: [address], [place], [place] Stores Clerk Name of Stores Clerk: [employer] - Hellen Melgoza Phone Number for Stores Clerk: [phone] Date of Appointment with Stores Clerk: 09/12/18 Time of Appointment with Stores Clerk: 8:30 a.m. Case Management Appointment Comment: will meet you at your funeral home general manager Name of Specialist: Trauma Therapist - Karlene Abraham Phone Number for Specialist: Date of Appointment with Specialist: 09/14/18 Time of Appointment with Specialist: 3 pm Specialty Appointment Comment: [address], [place] [address] Contact Information Discharge Discharge Address: [facility] [address], [place], [place] [address] CPT Code CPT Code 00718
[2018-09-09] MEDS: ACETAMINOPHEN 325 MG TAB PO PRN (15:33)
[2018-09-09] MEDS: VORTIOXETINE HYDROBROMIDE PO SCH (22:09)
--- NOTE | 2018-09-10 08:55 | Psychiatric Progress Note ---
Date of Service September 10, 2018 Impression / Recommendations Impression Pt appearing more hopeful today, stating 1 on 1 conversations with staff were helpful. She is hoping to keep this momentum moving forward, recognizing the need to make changes to better her situation. She is feeling less defeated about the idea of long-term inpatient treatment. Would ideally see ongoing stability prior to considering discharge, given patient's chronic suicidality and risk of decompensation and harm to self if discharged prematurely. Pt reports pain near her left lower buttock, along her panty line. Physical examination suggesting likely sebaceous cyst or boil caused by friction, as directly in line with noman's undergarments. Requested she continue to observe and report any new concerns. Ice pack provided by nursing and reminded of prn pain medications if necessary. (1) Major depressive disorder, recurrent episode with anxious distress: 09/05 -continue voluntary admission with suicide checks for safety. -Participate in groups and therapy, work on healthy coping skills and a discharge safety plan. -Coordinate with outpatient treatment team, including PA for recent medication trials. -Family meeting with boyfriend, and review safety plan. Specifically recommend medications in the home are locked and secured, so the patient will not have access to large amounts of pills, given her chronic suicidal ideation and history of multiple suicide attempts by overdose. Also recommend that guns be secured (although patient says they are not fireable in their current state as are antiques). -Per policy, medicinal marijuana will not be provided on the [facility]. -Continue home dose of vortixetine 20 mg at bedtime. BF bringing it in today. Discussed possibility of a trial of lithium for chronic SI and mood, but patient is reluctant, stating she doesn't like medications. She also expresses interest in maybe returning to escitalopram as it was helpful in the past. -Patient interested in exploring option of trauma program at [facility] - she doesn't feel able to contact her insurance to find out if it is covered, but is open to getting additional information. 09/06 - Assist the patient to explore insurance coverage of all purpose clerk hospitalization - Continue current meds. 09/07 - Continue current meds. 09/08 -Continue current meds. -Continue individual, group, activity and milieu therapy. - Explore insurance and donated funds for longer term psychiatric inpatient treatment. 09/09 - Continue as above. No medication adjustments - Continue to encourage patient to advocate for her needs on the unit, as she openly reports feeling they cannot be addressed in the group setting 09/10 - Continue current medication regimen - appearing more hopeful, encourage patient to take steps to keep this momentum (2) PTSD (post-traumatic stress disorder): 09/05 - Continue home dose of vortioxetine. Consider switch to SSRI as above. -Patient is currently in trauma therapy, and discussed that actively working on her traumas and therapy can exacerbate symptoms in the short-term, but the long- term goal is to address these issues so that symptoms will decrease and functioning will improve. 09/06 - Explore and encourage mindfulness and grounding 09/08 - Trauma informed care. -Continue to explore and encourage mindfulness and grounding (3) Constipation: 09/05 - Encourage high fiber diet, sufficient water intake, milk of magnesia prn. (4) Foot pain: 09/05 -patient may have shoes on unit per her request, as this helps with tendon problems/foot pain. Inventory Assets Strengths: Significant outpatient treatment/services, supportive boyfriend, stable housing Needs: Improved symptom control/functioning Risk Factors Assessment Male: No : Yes Do You Have Access To A Gun?: Yes (antique rifle and boyfriend has an antique handgun - not locked or secured) Health Problems: Yes Mental Health Diagnoses: Yes Substance Use Disorders: Yes (In remission) Previous Attempt: Yes Family History of Suicide: No Previous Psychiatric Hospitalization: Yes Hopelessness: Yes Smoker: No Protective Factors Assessment : No Responsible for Young Children: No Employed: No Stable Relationships: Yes Supportive Family: No Good Rapport with Provider: Yes Interval History Identifying Information 38 yo woman with PTSD and depression, admitted suicidality. She is admitted voluntarily. Chief Complaint "Feeling good today, I think". Review of Systems Notes Constitutional: denied Cardiovascular: denied Respiratory: denied Gastrointestinal: denied Neurological: denied Integumentary: reports pain in lower left buttock Psychiatric: denies symptoms other than stated above Total of at least 10 systems reviewed, pertinent positives as above and in HPI. Sleep Information Total Hours of Sleep: 6.25 Sleep Comments: watched tv with a peer till almost midnight. awake and medicated with maalox at 0045 for epigastric distress Meal Information Percent Meal Consumed - Breakfast: 75 Percent Meal Consumed - Lunch: 100 Percent Meal Consumed - Dinner: 50 Subjective Subjective Patient was seen & assessed and interval progress reviewed with Nursing. Staff report the patient had a difficult and emotional day yesterday, but benefited from 1:1 conversations with staff. Themes of conversations were about patient's perception that she is a burden, chronically suicidal, and that she is feeling "stuck". Pt is seen today to assess progress since admission. Pt states that she feels that today has been much better. She is more hopeful today, less overwhelmed. Pt states counselor last evening "gave me stuff to chew on, so that was helpful." She appears to have benefited from this 1 on 1 time. Pt states she is more motivated today to "change myself, I don't want to have to live like this anymore." She is more optimistic today about the idea of a long- term hospitalization stating, "it will be good to get all the garbage out, unload it, then set it on fire and move on." Pt denies any new or additional concerns today. Physical Exam Psychiatric Orientation: alert, oriented x 3 and cooperative Apperance: appropriately dressed and appropriately groomed Eye Contact: + fair eye contact Motor Behavior: steady gait and station and no abnormal motor movements Speech: normal rate/rhythm/volume of speech Affect: + depressed affect (appearing less depressed today) Mood: + depressed mood (but "feeling good today, I think" - reporting better mood than yesterday) Thought Process: goal directed thought process, linear/logical thought process and clear/coherent thought process Thought Content: reality based without delusions Suicidal Thoughts: + reports suicidal thoughts though is more optimistic today Homicidal Thoughts: denies homicidal thoughts Hallucinations: no auditory hallucinations and no visual hallucinations Cognition: recent memory grossly intact, remote memory grossly intact, attention grossly intact and language grossly intact Estimated Intelligence: average estimated intelligence Insight: + fair insight Judgement: + fair judgement Vital Signs (Past 24 Hours) Last Vital Signs Temp 36.7 C 09/10/18 06:17 Pulse 97 H 09/10/18 06:17 Resp 18 09/10/18 06:17 BP 111/68 09/10/18 06:17 Pulse Ox 96 09/04/18 17:24 Skin Area of induration (2cm x 1.5cm) to left lower buttock along patient's panty line - some evidence of erythema, no visible puncture, drainage, or ecchymosis. Tender to the touch, no discharge expressed with pressure to the area, no pulsation. Results & Data Current Inpatient Medications Current Inpatient Medications: Current Inpatient Medications Acetaminophen (Tylenol) 650 mg PO Q4H PRN PRN Reason: Headache or Minor Fever Stop: 10/04/18 15:38 Last Admin: 09/09/18 15:33 Dose: 650 mg Documented by: Al Hydrox/Mg Hydrox/Simethicone (Maalox) 30 ml PO Q4H PRN PRN Reason: GI Upset Stop: 10/04/18 15:38 Last Admin: 09/10/18 00:45 Dose: 30 ml Documented by: Bismuth Subsalicylate (Kaopectate) 15 ml PO PRN PRN PRN Reason: Loose Stool Stop: 10/04/18 15:38 Hydroxyzine HCl (Vistaril) 25 mg PO Q4H PRN PRN Reason: Anxiety Stop: 10/04/18 15:38 Last Admin: 09/09/18 11:56 Dose: 25 mg Documented by: Hydroxyzine HCl (Vistaril) 50 mg PO HSZ PRN PRN Reason: Insomnia Stop: 10/04/18 15:46 Last Admin: 09/08/18 22:57 Dose: 50 mg Documented by: Magnesium Hydroxide (Milk Of Magnesia) 30 ml PO DAILY PRN PRN Reason: Heartburn Stop: 10/04/18 15:38 Last Admin: 09/04/18 21:41 Dose: 30 ml Documented by: Meloxicam (Mobic) 15 mg PO DAILY PRN PRN Reason: Pain Stop: 10/05/18 08:59 Last Admin: 09/08/18 21:21 Dose: 15 mg Documented by: Polyethylene Glycol (Miralax Powder Packet) 17 gm PO BID PRN PRN Reason: Constipation Stop: 10/05/18 19:57 Last Admin: 09/08/18 20:26 Dose: 17 gm Documented by: Sodium Chloride ([place] Nasal) 1 - 2 sprays NA PRN PRN PRN Reason: Nasal Dryness/Congestion Stop: 10/04/18 15:38 Vortioxetine (Trintellix) 1 ea PO HS KANDI Stop: 10/05/18 21:59 Last Admin: 09/09/18 22:09 Dose: 1 ea Documented by: Post Discharge Appointments Primary Care Physician Name Of Family Doctor: [facility] - Dr. Rivera Marie Primary Care Provider Appointment Comment: [address] [facility], [place] [address] Psychiatrist Name of Psychiatrist: Sharmila Thakkar PA-C Psychiatrist's Date of Appointment with Psychiatrist: 09/19/18 Time of Appointment with Psychiatrist: 1:15 p.m. Psychiatric Appointment Comment: [address] [place] Therapist Name of Therapist: Sharimla Garcia Therapist's Date of Therapist Appointment: 09/13/18 Time of Therapist Appointment: 11:00 a.m. Therapy Appointment Comment: [address] [facility] [place] Instructor Bridge Name of Instructor Bridge: [facility] - Hellen Melgoza Phone Number for Instructor Bridge: [phone] Date of Appointment with Instructor Bridge: 09/12/18 Time of Appointment with Instructor Bridge: 8:30 a.m. 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
[2018-09-10] MEDS: VORTIOXETINE HYDROBROMIDE PO SCH (21:24)
[2018-09-10] MEDS: POLYETHYLENE (MIRALAX) 17 GM PACK PO PRN (21:26)
[2018-09-11 06:53] VITALS: BP 122/84; PULSE 89; TEMP 97.9
--- NOTE | 2018-09-11 10:17 | Psychiatric Progress Note ---
Date of Service September 11, 2018 Impression / Recommendations Impression Ongoing depression and suicidality, improved slightly from admission, but remains at risk of suicide if discharged prematurely. (1) Major depressive disorder, recurrent episode with anxious distress: 09/05 -continue voluntary admission with suicide checks for safety. -Participate in groups and therapy, work on healthy coping skills and a discharge safety plan. -Coordinate with outpatient treatment team, including PA for recent medication trials. -Family meeting with boyfriend, and review safety plan. Specifically recommend medications in the home are locked and secured, so the patient will not have access to large amounts of pills, given her chronic suicidal ideation and history of multiple suicide attempts by overdose. Also recommend that guns be secured (although patient says they are not fireable in their current state as are antiques). -Per policy, medicinal marijuana will not be provided on the [facility]. -Continue home dose of vortixetine 20 mg at bedtime. BF bringing it in today. Discussed possibility of a trial of lithium for chronic SI and mood, but patient is reluctant, stating she doesn't like medications. She also expresses interest in maybe returning to escitalopram as it was helpful in the past. -Patient interested in exploring option of trauma program at [facility] - she doesn't feel able to contact her insurance to find out if it is covered, but is open to getting additional information. 09/06 - Assist the patient to explore insurance coverage of [facility] hospitalization - Continue current meds. 09/07 - Continue current meds. 09/08 - Continue current meds. - Continue individual, group, activity and milieu therapy. - Explore insurance and donated funds for longer term psychiatric inpatient treatment. 09/09 - Continue as above. No medication adjustments - Continue to encourage patient to advocate for her needs on the unit, as she openly reports feeling they cannot be addressed in the group setting 09/10 - Continue current medication regimen - appearing more hopeful, encourage patient to take steps to keep this momentum 09/11 - Slightly improved, but perseverating on negatives and past affronts. Encouraged to focus on the here and now, and addressing the issues under her control. BPD traits evident. (2) PTSD (post-traumatic stress disorder): 09/05 - Continue home dose of vortioxetine. Consider switch to SSRI as above. -Patient is currently in trauma therapy, and discussed that actively working on her traumas and therapy can exacerbate symptoms in the short-term, but the long- term goal is to address these issues so that symptoms will decrease and functioning will improve. 09/06 - Explore and encourage mindfulness and grounding 09/08 - Trauma informed care. - Continue to explore and encourage mindfulness and grounding (3) Constipation: 09/05 - Encourage high fiber diet, sufficient water intake, milk of magnesi a prn. (4) Foot pain: 09/05 -patient may have shoes on unit per her request, as this helps with tendon problems/foot pain. Inventory Assets Strengths: Significant outpatient treatment/services, supportive boyfriend, stable housing Needs: Improved symptom control/functioning Risk Factors Assessment Male: No : Yes Do You Have Access To A Gun?: Yes (antique rifle and boyfriend has an antique handgun - not locked or secured) Health Problems: Yes Mental Health Diagnoses: Yes Substance Use Disorders: Yes (In remission) Previous Attempt: Yes Family History of Suicide: No Previous Psychiatric Hospitalization: Yes Hopelessness: Yes Smoker: No Protective Factors Assessment : No Responsible for Young Children: No Employed: No Stable Relationships: Yes Supportive Family: No Good Rapport with Provider: Yes Interval History Identifying Information 38 yo woman with PTSD and depression, admitted suicidality. She is admitted voluntarily. Chief Complaint "I had a rough night". Review of Systems Sleep Information Total Hours of Sleep: 5 Sleep Comments: pt given vistaril per rn. pt on q-15 minute checks Meal Information Percent Meal Consumed - Breakfast: 75 Percent Meal Consumed - Lunch: 50 Percent Meal Consumed - Dinner: 100 Subjective Subjective Patient was seen & assessed and interval progress reviewed with Treatment Team. Staff report she continues to express suicidal thoughts, but describes them as passive, and feels overwhelmed by her stressors. She is upset about the process to get into a longer term treatment center, and is easily tearful. On my asse ssment, she reports she is ruminating on negative thoughts, says "the system traumatizes me," and talks about how difficult it has been for her to find outpatient treatment and the challenges with getting into [facility] ([facility] is currently exploring options to assist with funding). She describes mood as overwhelmed, and says she is "trying to not hope, that's destructive." She has many complaints about her insurance, outpatient care, and the process of getting social security disability (has a hearing coming up). She is tolerating her medication well, and denies side effects. She is frustrated with her inability to function and wants to "have a future," but feels there are many barriers. She has many complaints about outpatient facilities that "refused to help me," and perseverates on this. She talks at length about people who have "wronged" her in the past and feels traumatized by experiences she had 9 years ago when she was told she couldn't return to a particular outpatient clinic because she had not paid her bills. Physical Exam Psychiatric Orientation: alert, oriented x 3 and cooperative Apperance: appropriately dressed and appropriately groomed wearing scrub pants, tshirt and cardigan sweater Eye Contact: good eye contact Motor Behavior: steady gait and station and no abnormal motor movements Speech: normal rate/rhythm/volume of speech Affect: + depressed affect, + constricted affect and mood congruent with affect Mood: + depressed mood Thought Process: + circumstantial thought process Thought Content: + preoccupation, + cognitive distortions and + hopelessness Suicidal Thoughts: + reports suicidal thoughts but "not as intense" as on admission Homicidal Thoughts: denies homicidal thoughts Hallucinations: no auditory hallucinations Cognition: recent memory grossly intact, remote memory grossly intact, attention grossly intact and language grossly intact Insight: + fair insight Judgement: + fair judgement Vital Signs (Past 24 Hours) Last Vital Signs Temp 36.6 C 09/11/18 06:51 Pulse 89 09/11/18 06:51 Resp 16 09/11/18 06:51 BP 122/84 09/11/18 06:51 Pulse Ox 96 09/04/18 17:24 Results & Data Current Inpatient Medications Current Inpatient Medications: Current Inpatient Medications Acetaminophen (Tylenol) 650 mg PO Q4H PRN PRN Reason: Headache or Minor Fever Stop: 10/04/18 15:38 Last Admin: 09/09/18 15:33 Dose: 650 mg Documented by: Al Hydrox/Mg Hydrox/Simethicone (Maalox) 30 ml PO Q4H PRN PRN Reason: GI Upset Stop: 10/04/18 15:38 Last Admin: 09/10/18 00:45 Dose: 30 ml Documented by: Bismuth Subsalicylate (Kaopectate) 15 ml PO PRN PRN PRN Reason: Loose Stool Stop: 10/04/18 15:38 Hydroxyzine HCl (Vistaril) 25 mg PO Q4H PRN PRN Reason: Anxiety Stop: 10/04/18 15:38 Last Admin: 09/09/18 11:56 Dose: 25 mg Documented by: Hydroxyzine HCl (Vistaril) 50 mg PO HSZ PRN PRN Reason: Insomnia Stop: 10/04/18 15:46 Last Admin: 09/10/18 22:49 Dose: 50 mg Documented by: Magnesium Hydroxide (Milk Of Magnesia) 30 ml PO DAILY PRN PRN Reason: Heartburn Stop: 10/04/18 15:38 Last Admin: 09/04/18 21:41 Dose: 30 ml Documented by: Meloxicam (Mobic) 15 mg PO DAILY PRN PRN Reason: Pain Stop: 10/05/18 08:59 Last Admin: 09/08/18 21:21 Dose: 15 mg Documented by: Polyethylene Glycol (Miralax Powder Packet) 17 gm PO BID PRN PRN Reason: Constipation Stop: 10/05/18 19:57 Last Admin: 09/10/18 21:26 Dose: 17 gm Documented by: Sodium Chloride ([place] Nasal) 1 - 2 sprays NA PRN PRN PRN Reason: Nasal Dryness/Congestion Stop: 10/04/18 15:38 Vortioxetine (Trintellix) 1 ea PO HS KANDI Stop: 10/05/18 21:59 Last Admin: 09/10/18 21:24 Dose: 1 ea Documented by: Post Discharge Appointments Primary Care Physician Name Of Family Doctor: [facility] - Dr. Rivera Marie Primary Care Provider Appointment Comment: [address] [facility] [place] [address] Psychiatrist Name of Psychiatrist: Sharmila Thakkar PA-C Psychiatrist's Date of Appointment with Psychiatrist: 09/19/18 Time of Appointment with Psychiatrist: 1:15 p.m. Psychiatric Appointment Comment: [address] [facility], [place], [place] Therapist Name of Therapist: Sharmila Garcia Therapist's Date of Therapist Appointment: 09/13/18 Time of Therapist Appointment: 11:00 a.m. Therapy Appointment Comment: [address], [place], [place] Mortgage Originator Name of Mortgage Originator: [facility] - Hellen Melgoza Phone Number for Mortgage Originator: [phone] Date of Appointment with Mortgage Originator: 09/12/18 Time of Appointment with Mortgage Originator: 8:30 a.m. Case Management Appointment Comment: will meet you at your funeral home attendant Name of Specialist: Trauma Therapist - Karlene Abraham Phone Number for Specialist: Date of Appointment with Specialist: 09/14/18 Time of Appointment with Specialist: 3 pm Specialty Appointment Comment: [place] [address] Contact Information Discharge Discharge Address: [facility] [address], [place], [place] [address] CPT Code CPT Code 78066
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
== END 2018-09-11 13:10 | disposition home or self-care (01) | DRG 885 ==
LOC: ED 12:38 → 3S 15:39

== ENCOUNTER 2020-02-20 16:35 | Inpatient (IN) ==
[2020-02-20] MEDS ORDERED: POLYETHYLENE (MIRALAX) 17 GM PACK PO PRN (17:19)
[2020-02-20 17:26] LABS: Appearance Urine Clear (Clear); Bilirubin Urine Negative (Negative); Blood Urine Negative (Negative); Color Urine Yellow; Glucose Urine UA Negative (Negative); Ketones Urine Negative (Negative); Leukocyte Esterase Urine Negative (Negative); Nitrite Urine Negative (Negative); Protein Urine Negative (Negative); Specific Gravity Urine 1.016 (1.000-1.030); Urobilinogen Urine Negative (Negative); pH Urine 7.5 (4.5-7.5)
--- NOTE | 2020-02-20 17:28 | Emergency Department Note ---
Impression & Plan Dissociative identity disorder, Suicidal ideations, Complex posttraumatic stress disorder ED Provider Note Provider: Luis Alberto Martínez MD DATE OF SERVICE: 02/20/2020 CHIEF COMPLAINT: Suicidal thoughts, dissociation HISTORY OF PRESENT ILLNESS: Patient is a 40-year-old female with a history of gastritis, PTSD, GERD, dissociative identity disorder presenting here today stating that over the past month she is worsening of her mental status is now having more dissociations and thoughts of wanting to harm her self. Patient denies recent has been does have a history. Patient states he becomes impulsive at times. Patient states that she had thoughts of either hanging herself or overdosing. Patient states that she has 2 therapist and a port steward and been working with them but things are declining to believe she needs further inpatient treatment. Was referred here by her port steward today. Lives at home currently with her boyfriend who provide support but she states things are getting out of control. Again patient denies asked to try to harm her self recently. She states she is dissociating more and having insomnia issues. REVIEW OF SYSTEMS: A total of 10 review of systems was obtained and negative except as stated above in the HPI. PAST MEDICAL HISTORY: As noted above MEDICATIONS: Reviewed home medication list SOCIAL HISTORY: Currently lives with her boyfriend, former smoker PHYSICAL EXAM: GENERAL: alert and oriented sitting on bed Head: normocephalic and atraumatic EYES: No injection, discharge or icterus. LUNGS: Airway patent. No retractions. Breath sounds clear with good air entry bilaterally. HEART: Regular rate and rhythm. No chest wall tenderness ABDOMEN: Soft and non-tender, without guarding or rebound. SKIN: Acyanotic, warm, dry, without rashes EXTREMITIES: Without swelling or deformity. NEUROLOGICAL: No focal deficits. No aphasia. No facial droop or slurred speech. Psych: Patient endorses personality associations and depression with suicidal t houghts with plan. Patient is at times tearful and appears anxious Patient's hypertension was referred to PCP Patient's laboratory studies and imaging reviewed. Differential includes Mood disorder, infection, hypoglycemia, electrolyte abnormalities, cardiac sources, intracerebral event, toxicologic, trauma, neurologic, as well as other pathologies. IMPRESSION/MEDICAL DECISION MAKING: Patient presents stating worsening mental status history of suicide attempts and inpatient hospitalizations and I believe she needs inpatient treatment. For by port steward. Patient denies actually trying to harm her self currently. Does have a history. She states he does have a plan to harm herself currently. Patient reports a history of some GI issues and needs MiraLAX to stay regular and request this. PRN MiraLAX ordered. Patient requesting evaluation for inpatient treatment. Seen in contact with psychiatric family caseworker. Basic laboratory studies for evaluation were completed. No serious significant abnormality was noted here although several positives on the UDS are noted. Believe the patient would benefit as she wishes for inpatient mental health care. Referrals will be made. Patient accepted 3 S. further inpatient care on . DIAGNOSIS: Suicidal ideation, complex PTSD, dissociative identity disorder DISPOSITION: Inpatient psychiatric placement Past Med/Surg History Medical History (Updated 02/20/20 @ 22:44 by Luis Alberto Martínez M.D.) Borderline high cholesterol Chronic constipation + impactions Degenerative disc disease Dissociative identity disorder Fibromyalgia per records GERD (gastroesophageal reflux disease) HLA B27 (HLA B27 positive) follows with rheumatology Hx of ovarian cyst Major depressive disorder, recurrent episode with anxious distress Osteoarthritis Post traumatic stress disorder Restless leg syndrome Temporomandibular joint disorder Surgical History (Updated 12/15/19 @ 15:01 by Kathryn Bui) History of anesthesia reaction "panic" with anesthesia/surgery History of colonoscopy AGE AGE 19 [place] teeth removed Family History Mother , 51 Breast cancer, Onset Age: 42 Schizophrenia Bipolar 1 disorder Grandfather (Paternal) No problems noted. Grandmother (Paternal) Family history of diabetes mellitus Grandfather (Maternal) Family history of diabetes mellitus Social History Smoking Status: Former smoker Second Hand Exposure: Yes; Hx Alcohol Use: Yes Alcohol type: wine Hx Substance Use: No Preferred Language: Haitian Communication Ability: Effective Visual Impairment: No Limitations Hearing Ability: Normal Hooker Off Required: No Beliefs That Will Affect Care: None marital status: Single Current Living Situation: Significant Other current occupational status: unemployed Feels Safe at Home: Yes Childhood Exposure to Second-Hand Smoke: Yes caffeine: Yes Dental Care, Regularly: Yes Physical Activity Frequency: 1-2 Times per Week Seatbelt Use: sometimes Sunscreen Use: Yes Allergies Allergies Allergy/AdvReac Type Severity Reaction Status Date / Time chlorpheniramine Allergy Intermediate Hives Verified 12/24/19 12:31 dextromethorphan Allergy Intermediate Hives Verified 12/24/19 12:31 Penicillins Allergy Intermediate Hives Verified 12/24/19 12:31 phenylpropanolamine Allergy Intermediate Hives Verified 12/24/19 12:31 nickel AdvReac Mild Rash Verified 12/24/19 12:31 Home Meds Home Medications Medication Instructions Recorded Confirmed perphenazine 8 mg tablet 8 mg PO DAILY PRN tab 07/11/19 02/20/20 propranolol 10 mg tablet 10 mg PO QID PRN tab 07/11/19 02/20/20 trazodone 50 mg tablet 50 mg PO HS PRN tab 07/11/19 02/20/20 Medical Marijauna 1 dose PO UD PRN 12/14/19 02/20/20 escitalopram oxalate 20 mg PO HS 12/14/19 02/20/20 meclizine 12.5 mg PO DAILY PRN 02/20/20 02/20/20 Previous Rx's Medication Instructions Recorded clotrimazole-betamethasone 1 1 appln TOP BID #15 gm 07/11/19 %-0.05 % topical cream omeprazole 20 mg capsule,delayed 20 mg PO QPM #90 cap 09/17/19 release meloxicam 15 mg tablet 15 mg PO DAILY #30 tab 09/20/19 sucralfate [Carafate] 1 gm PO ACHS #40 tab 12/24/19 Results & Data (ED) Vital Signs Vital Signs - 24 hr 02/20/20 16:46 Temperature 37 C Temperature Source Oral Pulse Rate 101 H Respiratory Rate 16 Respiratory Effort / Characteristics Non-Labored Spontaneous Respiratory Depth Normal Respiratory Pattern Regular Blood Pressure 133/81 Blood Pressure Mean 98 Blood Pressure Position Sitting Pulse Oximetry 96 Oxygen Delivery Method Room Air Sepsis Recent Fever Within 48 Hours No Sepsis New/Unexplained Change in Mental Status N/A Sepsis Action Taken by Nursing No Action Required Laboratory Data Result diagrams: 02/20/20 17:28 02/20/20 17:28 Lab Results 02/20/20 02/20/20 02/20/20 Range/Units 16:52 16:52 17:28 WBC 6.22 (4.8-10.8) K/uL RBC 4.41 (4.2-5.4) M/uL Hgb 14.1 (12.0-16.0) g/dL Hct 41.1 (37-47) % MCV 93.2 (80-100) fL MCH 32.0 (25-34) pg MCHC 34.3 (32-36) g/dL RDW Std Deviation 41.0 (36.4-46.3) fL RDW Coeff of Paul 12.1 (11.5-14.5) % Plt Count 251 (130-400) K/uL MPV 11.5 H (7.4-10.4) fL Immature Gran % (Auto) 0.2 % Neut % (Auto) 59.3 % Lymph % (Auto) 29.3 % [place] % (Auto) 7.7 % Eos % (Auto) 2.9 % Baso % (Auto) 0.6 % Neut # (Auto) 3.69 (1.4-6.5) K/uL Lymph # (Auto) 1.82 (1.2-3.4) K/uL Deuel # (Auto) 0.48 (0.11-0.59) K/uL Eos # (Auto) 0.18 (0-0.5) K/uL Baso # (Auto) 0.04 (0-0.2) K/uL Immature Gran # (Auto) 0.01 (0.00-0.02) K/uL Sodium (136-145) mmol/L Potassium (3.5-5.1) mmol/L Chloride (98-107) mmol/L Carbon Dioxide (21-32) mmol/L Anion Gap (3-11) BUN (7-18) mg/dl Creatinine (0.6-1.2) mg/dl Est Cr Clr Drug Dosing ml/min Est GFR ( Amer) Est GFR (Non-Af Amer) BUN/Creatinine Ratio (10-20) Glucose (70-99) mg/dl Calcium (8.5-10.1) mg/dl Total Bilirubin (0.2-1) mg/dl AST (15-37) U/L ALT (12-78) U/L Alkaline Phosphatase (45-117) U/L Total Protein (6.4-8.2) gm/dl Albumin (3.4-5.0) gm/dl Globulin (2.5-4.0) gm/dl Albumin/Globulin Ratio (0.9-2) TSH (0.300-4.500) uIu/ml HCG, Qual (Negative) Urine Color Yellow Urine Appearance Clear (Clear) Urine pH 7.5 (4.5-7.5) Ur Specific [place] 1.016 (1.000-1.030) Urine Protein Negative (Negative) Urine Glucose (UA) Negative (Negative) Urine Ketones Negative (Negative) Urine Blood Negative (Negative) Urine Nitrite Negative (Negative) Urine Bilirubin Negative (Negative) Urine Urobilinogen Negative (Negative) Ur Leukocyte Esterase Negative (Negative) Salicylates (2.8-20) mg/dl Urine Opiates Screen Neg (Neg) Ur Methadone, Qual Neg (Neg) Acetaminophen (10-30) ug/ml Urine Barbiturates Neg (Neg) Ur Phencyclidine (PCP) Neg (Neg) U Amphetamin/Meth Scrn Neg (Neg) MDMA (Ecstasy) Screen Pos H (Neg) U Benzodiazepines Scrn Neg (Neg) Ur Cocaine Metabolite Neg (Neg) U Marijuana (THC) Screen Pos H (Neg) Ethyl Alcohol mg/dL (0-3) mg/dl 02/20/20 02/20/20 02/20/20 Range/Units 17:28 17:28 17:28 WBC (4.8-10.8) K/uL RBC (4.2-5.4) M/uL Hgb (12.0-16.0) g/dL Hct (37-47) % MCV (80-100) fL MCH (25-34) pg MCHC (32-36) g/dL RDW Std Deviation (36.4-46.3) fL RDW Coeff of Paul (11.5-14.5) % Plt Count (130-400) K/uL MPV (7.4-10.4) fL Immature Gran % (Auto) % Neut % (Auto) % Lymph % (Auto) % De[place] % (Auto) % Eos % (Auto) % Baso % (Auto) % Neut # (Auto) (1.4-6.5) K/uL Lymph # (Auto) (1.2-3.4) K/uL Deuel # (Auto) (0.11-0.59) K/uL Eos # (Auto) (0-0.5) K/uL Baso # (Auto) (0-0.2) K/uL Immature Gran # (Auto) (0.00-0.02) K/uL Sodium 138 (136-145) mmol/L Potassium 3.7 (3.5-5.1) mmol/L Chloride 107 (98-107) mmol/L Carbon Dioxide 24 (21-32) mmol/L Anion Gap 7.0 (3-11) BUN 9 (7-18) mg/dl Creatinine 0.71 (0.6-1.2) mg/dl Est Cr Clr Drug Dosing 119.7 ml/min Est GFR ( Amer) 123.5 Est GFR (Non-Af Amer) 106.5 BUN/Creatinine Ratio 13.3 (10-20) Glucose 110 H (70-99) mg/dl Calcium 9.2 (8.5-10.1) mg/dl Total Bilirubin 0.7 (0.2-1) mg/dl AST 14 L (15-37) U/L ALT 19 (12-78) U/L Alkaline Phosphatase 58 (45-117) U/L Total Protein 7.8 (6.4-8.2) gm/dl Albumin 3.7 (3.4-5.0) gm/dl Globulin 4.1 H (2.5-4.0) gm/dl Albumin/Globulin Ratio 0.9 (0.9-2) TSH 0.826 (0.300-4.500) uIu/ml HCG, Qual (Negative) Urine Color Urine Appearance (Clear) Urine pH (4.5-7.5) Ur Specific [place] (1.000-1.030) Urine Protein (Negative) Urine Glucose (UA) (Negative) Urine Ketones (Negative) Urine Blood (Negative) Urine Nitrite (Negative) Urine Bilirubin (Negative) Urine Urobilinogen (Negative) Ur Leukocyte Esterase (Negative) Salicylates < 1.7 L (2.8-20) mg/dl Urine Opiates Screen (Neg) Ur Methadone, Qual (Neg) Acetaminophen > 2 L (10-30) ug/ml Urine Barbiturates (Neg) Ur Phencyclidine (PCP) (Neg) U Amphetamin/Meth Scrn (Neg) MDMA (Ecstasy) Screen (Neg) U Benzodiazepines Scrn (Neg) Ur Cocaine Metabolite (Neg) U Marijuana (THC) Screen (Neg) Ethyl Alcohol mg/dL < 3.0 (0-3) mg/dl 02/20/20 Range/Units 17:28 WBC (4.8-10.8) K/uL RBC (4.2-5.4) M/uL Hgb (12.0-16.0) g/dL Hct (37-47) % MCV (80-100) fL MCH (25-34) pg MCHC (32-36) g/dL RDW Std Deviation (36.4-46.3) fL RDW Coeff of Paul (11.5-14.5) % Plt Count (130-400) K/uL MPV (7.4-10.4) fL Immature Gran % (Auto) % Neut % (Auto) % Lymph % (Auto) % [place] % (Auto) % Eos % (Auto) % Baso % (Auto) % Neut # (Auto) (1.4-6.5) K/uL Lymph # (Auto) (1.2-3.4) K/uL [place]uel # (Auto) (0.11-0.59) K/uL Eos # (Auto) (0-0.5) K/uL Baso # (Auto) (0-0.2) K/uL Immature Gran # (Auto) (0.00-0.02) K/uL Sodium (136-145) mmol/L Potassium (3.5-5.1) mmol/L Chloride (98-107) mmol/L Carbon Dioxide (21-32) mmol/L Anion Gap (3-11) BUN (7-18) mg/dl Creatinine (0.6-1.2) mg/dl Est Cr Clr Drug Dosing ml/min Est GFR ( Amer) Est GFR (Non-Af Amer) BUN/Creatinine Ratio (10-20) Glucose (70-99) mg/dl Calcium (8.5-10.1) mg/dl Total Bilirubin (0.2-1) mg/dl AST (15-37) U/L ALT (12-78) U/L Alkaline Phosphatase (45-117) U/L Total Protein (6.4-8.2) gm/dl Albumin (3.4-5.0) gm/dl Globulin (2.5-4.0) gm/dl Albumin/Globulin Ratio (0.9-2) TSH (0.300-4.500) uIu/ml HCG, Qual Negative (Negative) Urine Color Urine Appearance (Clear) Urine pH (4.5-7.5) Ur Specific [place] (1.000-1.030) Urine Protein (Negative) Urine Glucose (UA) (Negative) Urine Ketones (Negative) Urine Blood (Negative) Urine Nitrite (Negative) Urine Bilirubin (Negative) Urine Urobilinogen (Negative) Ur Leukocyte Esterase (Negative) Salicylates (2.8-20) mg/dl Urine Opiates Screen (Neg) Ur Methadone, Qual (Neg) Acetaminophen (10-30) ug/ml Urine Barbiturates (Neg) Ur Phencyclidine (PCP) (Neg) U Amphetamin/Meth Scrn (Neg) MDMA (Ecstasy) Screen (Neg) U Benzodiazepines Scrn (Neg) Ur Cocaine Metabolite (Neg) U Marijuana (THC) Screen (Neg) Ethyl Alcohol mg/dL (0-3) mg/dl Administered Medications Acetaminophen (Acetaminophen 325 Mg Tab) 650 mg PO Q4H PRN PRN Reason: Headache or Minor Fever Stop: 03/21/20 19:13 Last Admin: 02/20/20 22:04 Dose: 650 mg Documented by: [id number] Escitalopram Oxalate (Escitalopram Oxalate 20 Mg Tab) 20 mg PO HS KANDI Stop: 03/21/20 21:59 Last Admin: 02/20/20 21:59 Dose: 20 mg Documented by: [id number] Pantoprazole Sodium (Pantoprazole 40 Mg Tab) 40 mg PO QPM KANDI Stop: 03/21/20 20:59 Last Admin: 02/20/20 21:59 Dose: 40 mg Documented by: [id number] Sucralfate (Sucralfate 1 Gm Tab) 1 gm PO ACHS KADNI Stop: 03/21/20 21:59 Last Admin: 02/20/20 21:59 Dose: 1 gm Documented by: [id number] Discharge Plan Visit Data Chief Complaint: Mental Health Evaluation Stated Complaint: MENTAL HEALTH EVAL ED Provider: Luis Alberto Martínez Discharge Problem: Dissociative identity disorder, Suicidal ideations, Complex posttraumatic stress disorder Patient Disposition: Admitted As Inpatient Discharge Instructions Interventions: ED Discharge Assessment Last Done: 02/20/20 20:08
[2020-02-20 17:42] LABS: Basophils # (auto) 0.04 K/uL (0-0.2); Basophils % (auto) 0.6 %; Eosinophils # (auto) 0.18 K/uL (0-0.5); Eosinophils % (auto) 2.9 %; Hematocrit (blood only) 41.1 % (37-47); Hemoglobin 14.1 g/dL (12.0-16.0); Immature Granulocytes # (auto) 0.01 K/uL (0.00-0.02); Immature Granulocytes % (auto) 0.2 %; Lymphocytes # (auto) 1.82 K/uL (1.2-3.4); Lymphocytes % (auto) 29.3 %; Mean Corpuscular Hgb Conc 34.3 g/dL (32-36); Mean Corpuscular Volume 93.2 fL (80-100); Mean Platelet Volume 11.5 fL (7.4-10.4); Monocytes # (auto) 0.48 K/uL (0.11-0.59); Monocytes % (auto) 7.7 %; Neutrophils # (auto) 3.69 K/uL (1.4-6.5); Neutrophils % (auto) 59.3 %; Platelet Count 251 K/uL (130-400); RDW Coefficient of Variation 12.1 % (11.5-14.5); Red Blood Count 4.41 M/uL (4.2-5.4); White Blood Count 6.22 K/uL (4.8-10.8)
[2020-02-20 17:44] LABS: Amphetamines+Metham, Urine Neg (Neg); Barbiturates, Urine Neg (Neg); Benzodiazepine, Urine Neg (Neg); Cocaine, Urine Neg (Neg); MDMA (Ecstacy), Urine Pos (Neg); Methadone, Urine Neg (Neg); Opiate, Urine Neg (Neg); Phencyclidine, Urine Neg (Neg)
[2020-02-20 17:59] LABS: Albumin Level 3.7 gm/dl (3.4-5.0); BUN Creatinine Ratio 13.3 (10-20); Calcium 9.2 mg/dl (8.5-10.1); Creatinine Clr Calc Pharmacy 119.7 ml/min; Est GFR (African American) 123.5; Est GFR (Non-African American) 106.5; Potassium 3.7 mmol/L (3.5-5.1)
[2020-02-20 18:05] LABS: Pregnancy Test, Serum Negative (Negative)
[2020-02-20 18:10] LABS: Albumin Globulin Ratio 0.9 (0.9-2); Bilirubin,Total 0.7 mg/dl (0.2-1); Globulin 4.1 gm/dl (2.5-4.0); Thyroid Stimulating Hormone 0.826 uIu/ml (0.300-4.500); Total Protein 7.8 gm/dl (6.4-8.2)
[2020-02-20 18:25] LABS: Acetaminophen > 2 ug/ml (10-30); Salicylate < 1.7 mg/dl (2.8-20)
[2020-02-20] MEDS ORDERED: MAGNESIUM HYDROXIDE SUSP 30 ML UDC PO PRN (19:14)
[2020-02-20] MEDS ORDERED: BISMUTH SUBSALICYLATE PER ML OMNICELL CHARGE PO PRN (19:14)
[2020-02-20] MEDS ORDERED: SODIUM CHLORIDE 0.65% NA SOLN 45 ML (OCEAN) PRN (19:14)
[2020-02-20] MEDS ORDERED: ALUMINUM/MAGNESIUM SUSP 30 ML UDC PO PRN (19:14)
[2020-02-20] MEDS: ESCITALOPRAM OXALATE 20 MG TAB PO SCH (21:59)
[2020-02-20] MEDS: PANTOprazole 40 MG TAB PO SCH (21:59)
[2020-02-20] MEDS: SUCRALFATE 1 GM TAB PO SCH (21:59)
[2020-02-20] MEDS: ACETAMINOPHEN 325 MG TAB PO PRN (22:04)
[2020-02-21] MEDS: ACETAMINOPHEN 325 MG TAB PO PRN ×2 (06:30→10:39)
[2020-02-21] MEDS: SUCRALFATE 1 GM TAB PO SCH ×4 (08:09→22:11)
[2020-02-21] MEDS: CeleBREX 200 MG CAP PO SCH (08:11)
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
[2020-02-21] MEDS: PROPRANOLOL HCL 10 MG TAB PO PRN ×3 (08:28→20:32)
[2020-02-21] MEDS ORDERED: NICOTINE 14 MG/24 HR PATCH TD SCH (09:00)
[2020-02-21] MEDS ORDERED: MELOXICAM 7.5 MG TAB PO SCH (09:00)
[2020-02-21] MEDS: PERPHENAZINE 2 MG TABLET PO PRN (09:58)
[2020-02-21] MEDS: PANTOprazole 40 MG TAB PO SCH (20:31)
[2020-02-21] MEDS: ESCITALOPRAM OXALATE 20 MG TAB PO SCH (20:31)
[2020-02-21] MEDS: TRAZODONE HCL 50 MG TAB PO PRN (22:11)
[2020-02-22] MEDS: CeleBREX 200 MG CAP PO SCH (09:26)
[2020-02-22] MEDS: SUCRALFATE 1 GM TAB PO SCH ×4 (09:26→21:06)
[2020-02-22] MEDS: PROPRANOLOL HCL 10 MG TAB PO PRN ×2 (09:26→21:25)
--- NOTE | 2020-02-22 10:28 | Psychiatric Progress Note ---
Date of Service February 22, 2020 Impression / Recommendations Impression 40 y/o F with trauma history, PTSD and DID who presents with SI and multiple plans in the context of PTSD exacerbation. She has multiple OP providers and lives w/ boyfriend who is her primary support. Inpatient treatment is medically necessary due to the severity of symptoms and risk for suicide if discharged. (1) Suicidal ideations: 02/20 - Continue voluntary IP treatment, suicide checks for safety. Attend groups and therapy and work on healthy coping skills and safety plan. Family meeting with boyfriend - recommend all medications be locked and dispensed to her daily until stabilizes. 02/21 - Continue as above, pt reports SI is "not as intense" today - Family meeting with boyfriend - anticipate this will need scheduled sometime this weekend (2) PTSD (post-traumatic stress disorder): 02/20 - Continue escitalopram, propranolol and perphenazine prn which she finds helpful -Coordinate w/ outpatient treatment providers (3) Major depressive disorder, recurrent episode with anxious distress: 02/20 - Continue meds as above (4) Dissociative identity disorder: continue meds as above, work on coping skills, c/w OP providers 02/21 - Continue as above, patient reports desire to work on recognition of when to utilize prn medications (5) Constipation: 02/20 - Continue sucralfate, miralax prn (6) GERD without esophagitis: 02/20 - continue PPI (7) Vertigo: 02/20 - Continue meclizine Risk Factors Assessment Male: No : Yes Do You Have Access To A Gun?: No Health Problems: Yes Mental Health Diagnoses: Yes Substance Use Disorders: No Previous Attempt: Yes Previous Psychiatric Hospitalization: Yes Hopelessness: No Smoker: Yes Protective Factors Assessment Yazidi Beliefs: No : No (lives with boyfriend) Responsible for Young Children: No Employed: No Stable Relationships: Yes Supportive Family: Yes Good Rapport with Provider: Yes Interval History Identifying Information REUBEN THURMAN is a 40-year-old F who currently lives in [place] with her boyfriend, has a history of PTSD and DID, and was admitted on 02/20/20 19:14 on a 201 voluntary commitment for suicidal ideation. Chief Complaint "Oh, ok. Things were kind of rough in the morning. I had nightmares and stuff last night." Review of Systems Notes Constitutional: admits to some nightmares last evening, which contributed to poor sleep Cardiovascular: denied Respiratory: denied Gastrointestinal: denied Neurological: denied Psychiatric: denies symptoms other than stated above Total of at least 10 systems reviewed, pertinent positives as above and in HPI. Sleep Information Total Hours of Sleep: 6.50 Sleep Comments: Pt on Q 15 minute checks Meal Information Percent Meal Consumed - Breakfast: 100 Percent Meal Consumed - Lunch: 100 Percent Meal Consumed - Dinner: 100 Subjective Subjective Patient was seen & assessed and interval progress reviewed with treatment team. Staff report the patient has been attending group programming and has been supportive of peers. Pt was seen today to assess progress since admission. Pt states she is "ok" and admits "things were kind of rough in the morning. I had nightmares and stuff last night." Pt states that her nightmares were related to her trauma history and that it took a few attempts at grounding techniques to improve her mood and anxiety this morning. Pt shares numerous coping strategies and resources she has learned during her time at a trauma-specialized unit. She admits that her focus of this hospitalization is to reorient herself to utilization of these techniques and also to improve recognition of when prn medications may be beneficial for anxiety/dissociation. Pt admits to continued SI, but does admit thoughts are "not as intense." Pt is willing to have a meeting with her boyfriend to discuss discharge and safety planning. She denies other needs or concerns today. Physical Exam Psychiatric Orientation: alert, oriented x 3 and cooperative (and pleasant) Apperance: appropriately dressed, appropriately groomed and appeared stated age Eye Contact: good eye contact Motor Behavior: steady gait and station and no abnormal motor movements Speech: normal rate/rhythm/volume of speech Affect: + anxious affect Mood: + depressed mood and + anxious mood Thought Process: goal directed thought process, clear/coherent thought process and thought association intact Thought Content: reality based without delusions and + self deprecation (reports she is trying not to view hospitalization as a sign of "failure"); no hopelessness Suicidal Thoughts: + reports suicidal thoughts (admits to continued SI, but admits thoughts are "not as intense") Homicidal Thoughts: denies homicidal thoughts Hallucinations: no auditory hallucinations and no visual hallucinations Cognition: recent memory grossly intact, attention grossly intact and language grossly intact Estimated Intelligence: consistent with education level Insight: + fair insight Judgement: + fair judgement Vital Signs (Past 24 Hours) Last Vital Signs Temp 36.5 C 02/22/20 06:00 Pulse 76 02/22/20 09:29 Resp 18 02/22/20 09:29 BP 112/73 02/22/20 09:29 Pulse Ox 98 02/20/20 20:35 Results & Data ([facility]) Current Inpatient Medications Current Inpatient Medications: Current Inpatient Medications Acetaminophen (Acetaminophen 325 Mg Tab) 650 mg PO Q4H PRN PRN Reason: Headache or Minor Fever Stop: 03/21/20 19:13 Last Admin: 02/21/20 10:39 Dose: 650 mg Documented by: Al Hydrox/Mg Hydrox/Simethicone (Aluminum/Magnesium Susp 30 Ml Udc) 30 ml PO Q4H PRN PRN Reason: GI Upset Stop: 03/21/20 19:13 Bismuth Subsalicylate (Bismuth Subsalicylate Per Ml Omnicell Charge) 15 ml PO PRN PRN PRN Reason: Loose Stool Stop: 03/21/20 19:13 Celecoxib (Celebrex 200 Mg Cap) 200 mg PO QAM KANDI Stop: 03/22/20 08:59 Last Admin: 02/22/20 09:26 Dose: 200 mg Documented by: Escitalopram Oxalate (Escitalopram Oxalate 20 Mg Tab) 20 mg PO HS KANDI Stop: 03/21/20 21:59 Last Admin: 02/21/20 20:31 Dose: 20 mg Documented by: Magnesium Hydroxide (Magnesium Hydroxide Susp 30 Ml Udc) 30 ml PO DAILY PRN PRN Reason: Constipation Stop: 03/21/20 19:13 Pantoprazole Sodium (Pantoprazole 40 Mg Tab) 40 mg PO QPM KANDI Stop: 03/21/20 20:59 Last Admin: 02/21/20 20:31 Dose: 40 mg Documented by: Perphenazine (Perphenazine 2 Mg Tablet) 8 mg PO DAILY PRN PRN Reason: Agitation Stop: 03/21/20 20:34 Last Admin: 02/21/20 09:58 Dose: 8 mg Documented by: Polyethylene Glycol (Polyethylene (Miralax) 17 Gm Pack) 17 gm PO DAILY PRN PRN Reason: Constipation Stop: 03/21/20 17:18 Propranolol HCl (Propranolol Hcl 10 Mg Tab) 10 mg PO QID PRN PRN Reason: Anxiety Stop: 03/21/20 20:22 Last Admin: 02/22/20 09:26 Dose: 10 mg Documented by: Sodium Chloride (Sodium Chloride 0.65% Na Soln 45 Ml ([place])) 1 - 2 sprays NA PRN PRN PRN Reason: Nasal Dryness/Congestion Stop: 03/21/20 19:13 Sucralfate (Sucralfate 1 Gm Tab) 1 gm PO ACHS KANDI Stop: 03/21/20 21:59 Last Admin: 02/22/20 09:26 Dose: 1 gm Documented by: Trazodone HCl (Trazodone Hcl 50 Mg Tab) 50 mg PO HS PRN PRN Reason: Sleep Stop: 03/21/20 20:22 Last Admin: 02/21/20 22:11 Dose: 50 mg Documented by: Mental Health & Subst Abuse Tx Psychiatrist Name of Psychiatrist: Sharmila Patel Psychiatrist's Psychiatric Appointment Comment: [id number] [facility] Therapist Name of Therapist: Karlene Abraham LCSW Therapist's Date of Therapist Appointment: 02/26/20 Time of Therapist Appointment: 2:00 p.m. Therapy Appointment Comment: [address] [place] [facility] [place] [address] Curtain Supervisor Name of Curtain Supervisor: SARY Barrios Phone Number for Curtain Supervisor: [phone] Date of Appointment with Curtain Supervisor: 02/27/20 Time of Appointment with Curtain Supervisor: 1:00 p.m. Post Discharge Appointments Primary Care Physician Name Of Family Doctor: SHANE Marie Primary Care Time of Appointment with PCP: Follow up as needed Provider Appointment Comment: [address] [place] [address] Partial or Psych Rehab Name of Partial or Psych Rehab: [facility] Manuelito Velasco Date of Appointment at Partial or Psych Rehab: 02/29/20 Time of Appointment at Partial or Psych Rehab: 2:30 p.m. Other #1: Name of Aftercare Appointment: Therapy: Sharmila Garcia Phone Number of Aftercare Appointment: [phone] Date of Aftercare Appointment: 03/03/20 Time of Aftercare Appointment: 11:00 a.m. Aftercare Appointment Comment: [id number] [facility], [place] Contact Information Discharge Discharge Address: [facility] [place] [address]
[2020-02-22] MEDS: PERPHENAZINE 2 MG TABLET PO PRN (12:45)
[2020-02-22] MEDS: ESCITALOPRAM OXALATE 20 MG TAB PO SCH (21:06)
[2020-02-22] MEDS: PANTOprazole 40 MG TAB PO SCH (21:06)
[2020-02-22] MEDS: TRAZODONE HCL 50 MG TAB PO PRN (22:34)
[2020-02-23] MEDS: CeleBREX 200 MG CAP PO SCH (08:06)
[2020-02-23] MEDS: SUCRALFATE 1 GM TAB PO SCH ×4 (08:06→20:48)
--- NOTE | 2020-02-23 09:10 | Psychiatric Progress Note ---
Date of Service February 23, 2020 Impression / Recommendations Impression 40 y/o F with trauma history, PTSD and DID who presents with SI and multiple plans in the context of PTSD exacerbation. She has multiple OP providers and lives w/ boyfriend who is her primary support. Inpatient treatment is medically necessary due to the severity of symptoms and risk for suicide if discharged. Reviewed 02/22. Plan: continue current med and treatment plan but dose Trilafon 4 mg bid to decrease reliance on prn as trial. Risk Factors Assessment Male: No : Yes Do You Have Access To A Gun?: No Health Problems: Yes Mental Health Diagnoses: Yes Substance Use Disorders: No Previous Attempt: Yes Previous Psychiatric Hospitalization: Yes Hopelessness: No Smoker: Yes Protective Factors Assessment Worship Beliefs: No : No (lives with boyfriend) Responsible for Young Children: No Employed: No Stable Relationships: Yes Supportive Family: Yes Good Rapport with Provider: Yes Interval History Identifying Information REUBEN THURMAN is a 40-year-old F who currently lives in [place] with her boyfriend, has a history of PTSD and DID, and was admitted on 02/20/20 19:14 on a 201 voluntary commitment for suicidal ideation. Reviewed. known to me from a previous admission. Chief Complaint "I just get overwhelmed and have a hard time knowing when to ask for prns when I'm down". Review of Systems Sleep Information Total Hours of Sleep: 6 Sleep Comments: Pt on Q 15 minute checks Meal Information Percent Meal Consumed - Breakfast: 100 Percent Meal Consumed - Lunch: 100 Percent Meal Consumed - Dinner: 100 Subjective Subjective Patient was seen & assessed and interval progress reviewed with nursing and social work. Has been appropriate on unit, no med changes, has meeting with boyfriend today who is supportive. She declined 11 am group and had been in bed for some time. States she is depressed with racing thoughts. Finds Trilafon prn helpful as "I get manic for a few days here and there" meaning up and productive. Discussed scheduling some Trilafon while she is here as a trial, reviewed longer term risks of TD. Physical Exam Psychiatric Orientation: alert, oriented x 3 and cooperative (and pleasant) Apperance: appropriately dressed and appropriately groomed Eye Contact: good eye contact Motor Behavior: steady gait and station and no abnormal motor movements Speech: normal rate/rhythm/volume of speech Affect: + depressed affect Mood: + depressed mood Thought Process: goal directed thought process Thought Content: reality based without delusions Suicidal Thoughts: denies suicidal thoughts ("not really here but I'm still overwhelmed", unable to contract for safety ) Homicidal Thoughts: denies homicidal thoughts Hallucinations: no auditory hallucinations and no visual hallucinations Cognition: recent memory grossly intact, attention grossly intact and language grossly intact Estimated Intelligence: consistent with education level Insight: + fair insight Judgement: + fair judgement Vital Signs (Past 24 Hours) Last Vital Signs Temp 36.4 C L 02/23/20 05:58 Pulse 76 02/23/20 05:59 Resp 16 02/23/20 05:58 BP 117/79 02/23/20 05:59 Pulse Ox 98 02/20/20 20:35 Results & Data ([facility]) Current Inpatient Medications Current Inpatient Medications: Current Inpatient Medications Acetaminophen (Acetaminophen 325 Mg Tab) 650 mg PO Q4H PRN PRN Reason: Headache or Minor Fever Stop: 03/21/20 19:13 Last Admin: 02/21/20 10:39 Dose: 650 mg Documented by: Al Hydrox/Mg Hydrox/Simethicone (Aluminum/Magnesium Susp 30 Ml Udc) 30 ml PO Q4H PRN PRN Reason: GI Upset Stop: 03/21/20 19:13 Bismuth Subsalicylate (Bismuth Subsalicylate Per Ml Omnicell Charge) 15 ml PO PRN PRN PRN Reason: Loose Stool Stop: 03/21/20 19:13 Celecoxib (Celebrex 200 Mg Cap) 200 mg PO QAM KANDI Stop: 03/22/20 08:59 Last Admin: 02/23/20 08:06 Dose: 200 mg Documented by: Escitalopram Oxalate (Escitalopram Oxalate 20 Mg Tab) 20 mg PO HS KANDI Stop: 03/21/20 21:59 Last Admin: 02/22/20 21:06 Dose: 20 mg Documented by: Magnesium Hydroxide (Magnesium Hydroxide Susp 30 Ml Udc) 30 ml PO DAILY PRN PRN Reason: Constipation Stop: 03/21/20 19:13 Pantoprazole Sodium (Pantoprazole 40 Mg Tab) 40 mg PO QPM KANDI Stop: 03/21/20 20:59 Last Admin: 02/22/20 21:06 Dose: 40 mg Documented by: Perphenazine (Perphenazine 2 Mg Tablet) 8 mg PO DAILY PRN PRN Reason: Agitation Stop: 03/21/20 20:34 Last Admin: 02/22/20 12:45 Dose: 8 mg Documented by: Polyethylene Glycol (Polyethylene (Miralax) 17 Gm Pack) 17 gm PO DAILY PRN PRN Reason: Constipation Stop: 03/21/20 17:18 Propranolol HCl (Propranolol Hcl 10 Mg Tab) 10 mg PO QID PRN PRN Reason: Anxiety Stop: 03/21/20 20:22 Last Admin: 02/22/20 21:25 Dose: 10 mg Documented by: Sodium Chloride (Sodium Chloride 0.65% Na Soln 45 Ml ([place])) 1 - 2 sprays NA PRN PRN PRN Reason: Nasal Dryness/Congestion Stop: 03/21/20 19:13 Sucralfate (Sucralfate 1 Gm Tab) 1 gm PO ACHS KANDI Stop: 03/21/20 21:59 Last Admin: 02/23/20 08:06 Dose: 1 gm Documented by: Trazodone HCl (Trazodone Hcl 50 Mg Tab) 50 mg PO HS PRN PRN Reason: Sleep Stop: 03/21/20 20:22 Last Admin: 02/22/20 22:34 Dose: 50 mg Documented by: Mental Health & Subst Abuse Tx Psychiatrist Name of Psychiatrist: Sharmila Patel Psychiatrist's Date of Appointment with Psychiatrist: 03/06/20 Time of Appointment with Psychiatrist: 3:30 p.m. Psychiatric Appointment Comment: [id number] [facility] Therapist Name of Therapist: Karlene Abraham LCSW Therapist's Date of Therapist Appointment: 02/26/20 Time of Therapist Appointment: 2:00 p.m. Therapy Appointment Comment: [address] [facility] [place] [place] [address] Caul Dresser Name of Caul Dresser: SARY Barrios Phone Number for Caul Dresser: [phone] Date of Appointment with Caul Dresser: 02/27/20 Time of Appointment with Caul Dresser: 1:00 p.m. Post Discharge Appointments Primary Care Physician Name Of Family Doctor: SHANE Marie Primary Care Time of Appointment with PCP: Follow up as needed Provider Appointment Comment: [address] [facility] [place] [address] Partial or Psych Rehab Name of Partial or Psych Rehab: [facility] - [facility] Date of Appointment at Partial or Psych Rehab: 02/29/20 Time of Appointment at Partial or Psych Rehab: 2:30 p.m. Contact Information Discharge Discharge Address: [facility] [place] [address]
[2020-02-23] MEDS ORDERED: CLOTRIMAZOLE/BETAMETHASONE CR 15 GM TUBE EXT PRN (09:16)
[2020-02-23] MEDS: PROPRANOLOL HCL 10 MG TAB PO PRN ×3 (09:43→20:56)
[2020-02-23] MEDS: PERPHENAZINE 2 MG TABLET PO PRN (15:46)
[2020-02-23] MEDS: ESCITALOPRAM OXALATE 20 MG TAB PO SCH (20:48)
[2020-02-23] MEDS: PANTOprazole 40 MG TAB PO SCH (20:48)
[2020-02-23] MEDS: PERPHENAZINE 2 MG TABLET PO SCH (20:48)
[2020-02-24] MEDS: SUCRALFATE 1 GM TAB PO SCH ×4 (08:47→21:09)
[2020-02-24] MEDS: CeleBREX 200 MG CAP PO SCH (08:47)
[2020-02-24] MEDS: PERPHENAZINE 2 MG TABLET PO SCH ×2 (08:47→20:59)
--- NOTE | 2020-02-24 12:04 | Psychiatric Progress Note ---
Date of Service February 24, 2020 Impression / Recommendations Impression 40 y/o F with trauma history, PTSD and DID who presents with SI and multiple plans in the context of PTSD exacerbation. She has multiple OP providers and lives w/ boyfriend who is her primary support. Inpatient treatment is medically necessary due to the severity of symptoms and risk for suicide if discharged. Reviewed 02/23. Plan: continue current med and treatment plan, Trilafon is now standing order 4 mg BID. Risk Factors Assessment Male: No : Yes Do You Have Access To A Gun?: No Health Problems: Yes Mental Health Diagnoses: Yes Substance Use Disorders: No Previous Attempt: Yes Previous Psychiatric Hospitalization: Yes Hopelessness: No Smoker: Yes Protective Factors Assessment Jain Beliefs: No : No (lives with boyfriend) Responsible for Young Children: No Employed: No Stable Relationships: Yes Supportive Family: Yes Good Rapport with Provider: Yes Interval History Identifying Information REUBEN THURMAN is a 40-year-old F who currently lives in [place] with her boyfriend, has a history of PTSD and DID, and was admitted on 02/20/20 19:14 on a 201 voluntary commitment for suicidal ideation. Reviewed. known to me from a previous admission. Reviewed. Chief Complaint "my thoughts aren't racing as much and aren't as dark" Review of Systems Sleep Information Total Hours of Sleep: 5.75 Sleep Comments: Pt on Q 15 minute checks Meal Information Percent Meal Consumed - Breakfast: 75 Percent Meal Consumed - Lunch: 75 Percent Meal Consumed - Dinner: 100 Subjective Subjective Patient was seen & assessed and interval progress reviewed with nursing and social work. Difficult day last pm, not due to family session, but because received a disorganized roommate who made her feel unsafe. Reuben is hyperalert to noises and protective of her things and ultimately chose to sleep in unlocked seclusion room. She notes some mild constipation/bloating (hx of colonic distention, unable to use her squatty potty here). Doesn't attribute to med changes. Physical Exam Psychiatric Orientation: alert Apperance: appropriately dressed and appropriately groomed Eye Contact: + fair eye contact Motor Behavior: no abnormal motor movements Speech: normal rate/rhythm/volume of speech Affect: + depressed affect Mood: + anxious mood Thought Process: goal directed thought process Thought Content: reality based without delusions Suicidal Thoughts: denies suicidal thoughts Homicidal Thoughts: denies homicidal thoughts Hallucinations: no auditory hallucinations and no visual hallucinations Vital Signs (Past 24 Hours) Last Vital Signs Temp 36.6 C 02/24/20 06:32 Pulse 90 02/24/20 06:32 Resp 18 02/24/20 06:32 BP 109/71 02/24/20 06:32 Pulse Ox 98 02/20/20 20:35 Results & Data ([facility]) Current Inpatient Medications Current Inpatient Medications: Current Inpatient Medications Acetaminophen (Acetaminophen 325 Mg Tab) 650 mg PO Q4H PRN PRN Reason: Headache or Minor Fever Stop: 03/21/20 19:13 Last Admin: 02/21/20 10:39 Dose: 650 mg Documented by: Al Hydrox/Mg Hydrox/Simethicone (Aluminum/Magnesium Susp 30 Ml Udc) 30 ml PO Q4H PRN PRN Reason: GI Upset Stop: 03/21/20 19:13 Betamethasone/Clotrimazole (Clotrimazole/Betamethasone Cr 15 Gm Tube) 1 appln EXT BID PRN PRN Reason: Rash Stop: 03/24/20 09:29 Last Admin: 02/23/20 13:38 Dose: 1 appln Documented by: Bismuth Subsalicylate (Bismuth Subsalicylate Per Ml Omnicell Charge) 15 ml PO PRN PRN PRN Reason: Loose Stool Stop: 03/21/20 19:13 Celecoxib (Celebrex 200 Mg Cap) [address] [facility] Stop: 03/22/20 08:59 Last Admin: 02/24/20 08:47 Dose: 200 mg Documented by: Escitalopram Oxalate (Escitalopram Oxalate 20 Mg Tab) [address] [facility] Stop: 03/21/20 21:59 Last Admin: 02/23/20 20:48 Dose: 20 mg Documented by: Magnesium Hydroxide (Magnesium Hydroxide Susp 30 Ml Udc) 30 ml PO DAILY PRN PRN Reason: Constipation Stop: 03/21/20 19:13 Pantoprazole Sodium (Pantoprazole 40 Mg Tab) [address] [facility] Stop: 03/21/20 20:59 Last Admin: 02/23/20 20:48 Dose: 40 mg Documented by: Perphenazine (Perphenazine 2 Mg Tablet) 8 mg PO DAILY PRN PRN Reason: Agitation Stop: 03/21/20 20:34 Last Admin: 02/23/20 15:46 Dose: 8 mg Documented by: Perphenazine (Perphenazine 2 Mg Tablet) 4 mg PO BID KANDI Stop: 03/24/20 20:59 Last Admin: 02/24/20 08:47 Dose: 4 mg Documented by: Polyethylene Glycol (Polyethylene (Miralax) 17 Gm Pack) 17 gm PO DAILY PRN PRN Reason: Constipation Stop: 03/21/20 17:18 Last Admin: 02/23/20 09:09 Dose: 17 gm Documented by: Propranolol HCl (Propranolol Hcl 10 Mg Tab) 10 mg PO QID PRN PRN Reason: Anxiety Stop: 03/21/20 20:22 Last Admin: 02/23/20 20:56 Dose: 10 mg Documented by: Sodium Chloride (Sodium Chloride 0.65% Na Soln 45 Ml ([place])) 1 - 2 sprays NA PRN PRN PRN Reason: Nasal Dryness/Congestion Stop: 03/21/20 19:13 Sucralfate (Sucralfate 1 Gm Tab) 1 gm PO ACHS KANDI Stop: 03/21/20 21:59 Last Admin: 02/24/20 08:47 Dose: 1 gm Documented by: Trazodone HCl (Trazodone Hcl 50 Mg Tab) 50 mg PO HS PRN PRN Reason: Sleep Stop: 03/21/20 20:22 Last Admin: 02/22/20 22:34 Dose: 50 mg Documented by: Mental Health & Subst Abuse Tx Psychiatrist Name of Psychiatrist: Sharmila Patel Psychiatrist's Date of Appointment with Psychiatrist: 03/06/20 Time of Appointment with Psychiatrist: 3:30 p.m. Psychiatric Appointment Comment: [address] [facility] Therapist Name of Therapist: Karlene Abraham LCSW Therapist's Date of Therapist Appointment: 02/26/20 Time of Therapist Appointment: 2:00 p.m. Therapy Appointment Comment: [address] [place] [facility] [place] [address] Neurosurgical Nurse Name of Neurosurgical Nurse: SARY Barrios Phone Number for Neurosurgical Nurse: [phone] Date of Appointment with Neurosurgical Nurse: 02/27/20 Time of Appointment with Neurosurgical Nurse: 1:00 p.m. Post Discharge Appointments Primary Care Physician Name Of Family Doctor: SHANE - Dr. Daphne Marie Primary Care Time of Appointment with PCP: Follow up as needed Provider Appointment Comment: [address] [place] [place] [address] Partial or Psych Rehab Name of Partial or Psych Rehab: [facility] [place] [facility] - [facility] Date of Appointment at Partial or Psych Rehab: 02/29/20 Time of Appointment at Partial or Psych Rehab: 2:30 p.m. Contact Information Discharge Discharge Address: [address] [place] [address], [place] [address]
[2020-02-24] MEDS: PROPRANOLOL HCL 10 MG TAB PO PRN ×2 (13:04→21:04)
[2020-02-24] MEDS: PANTOprazole 40 MG TAB PO SCH (20:59)
[2020-02-24] MEDS: ESCITALOPRAM OXALATE 20 MG TAB PO SCH (21:00)
[2020-02-24] MEDS: TRAZODONE HCL 50 MG TAB PO PRN (23:30)
[2020-02-25 07:46] LABS: MDA negative; MDEA negative; MDMA (Ecstasy) Urine, Confirm negative; Marijuana Quant, GCMS Urine 53 ng/mL (<5)
[2020-02-25] MEDS: PERPHENAZINE 2 MG TABLET PO SCH ×2 (09:21→17:16)
[2020-02-25] MEDS: SUCRALFATE 1 GM TAB PO SCH ×4 (09:21→21:55)
[2020-02-25] MEDS: CeleBREX 200 MG CAP PO SCH (09:22)
--- NOTE | 2020-02-25 12:25 | Psychiatric Progress Note ---
Date of Service February 25, 2020 Impression / Recommendations Impression 40 y/o F with trauma history, PTSD and DID who presents with SI and multiple plans in the context of PTSD exacerbation. She has multiple OP providers and lives w/ boyfriend who is her primary support. Inpatient treatment is medically necessary due to the severity of symptoms and risk for suicide if discharged. 02/24--improving (1) Suicidal ideations: 02/20 - Continue voluntary IP treatment, suicide checks for safety. Attend groups and therapy and work on healthy coping skills and safety plan. Family meeting with boyfriend - recommend all medications be locked and dispensed to her daily until stabilizes. 02/21 - Continue as above, pt reports SI is "not as intense" today - Family meeting with boyfriend - anticipate this will need scheduled sometime this weekend 02/24 reviewed (2) PTSD (post-traumatic stress disorder): 02/20 - Continue escitalopram, propranolol and perphenazine prn which she finds helpful -Coordinate w/ outpatient treatment providers 02/24--perhenazine is now standing order and will add BID propranolol. Will shift to am and early pm dosing rather than 2nd doses of these meds at hs. (3) Major depressive disorder, recurrent episode with anxious distress: 02/20 - Continue meds as above 02/24 Reviewed. (4) Dissociative identity disorder: continue meds as above, work on coping skills, c/w OP providers 02/21 - Continue as above, patient reports desire to work on recognition of when to utilize prn medications 02/24 Reviewed. (5) Constipation: 02/20 - Continue sucralfate, miralax prn 02/24 reviewed (6) GERD without esophagitis: 02/20 - continue PPI 02/24 reviewed (7) Vertigo: 02/20 - Continue meclizine 02/24 Reviewed. Risk Factors Assessment Male: No : Yes Do You Have Access To A Gun?: No Health Problems: Yes Mental Health Diagnoses: Yes Substance Use Disorders: No Previous Attempt: Yes Previous Psychiatric Hospitalization: Yes Hopelessness: No Smoker: Yes Protective Factors Assessment Catholic Beliefs: No : No (lives with boyfriend) Responsible for Young Children: No Employed: No Stable Relationships: Yes Supportive Family: Yes Good Rapport with Provider: Yes Interval History Identifying Information REUBEN THURMAN is a 40-year-old F who currently lives [place] [facility] with her boyfriend, has a history of PTSD and DID, and was admitted on 02/20/20 19:14 on a 201 voluntary commitment for suicidal ideation. Reviewed. known to me from a previous admission. Reviewed. Chief Complaint "I felt a little unsafe last night, that patient's starting reminds me of my mother". Review of Systems Sleep Information Total Hours of Sleep: 6 Sleep Comments: Pt on Q 15 minute checks Meal Information Percent Meal Consumed - Breakfast: 100 Percent Meal Consumed - Lunch: 100 Percent Meal Consumed - Dinner: 100 Subjective Subjective Patient was seen & assessed and interval progress reviewed with nursing. Reactive to various issues with peers on unit with psychotic symptoms similar to her mother's schizophrenia. Appears well rested today and participating in group. Same issue, propranolol is helpful but isn't sure when to take prn. Physical Exam Psychiatric Orientation: alert and cooperative (and pleasant) Apperance: appropriately dressed and appropriately groomed Eye Contact: good eye contact and + fair eye contact Motor Behavior: steady gait and station and no abnormal motor movements Speech: normal rate/rhythm/volume of speech Mood: + anxious mood Thought Process: goal directed thought process Thought Content: reality based without delusions Suicidal Thoughts: denies suicidal thoughts Homicidal Thoughts: denies homicidal thoughts Hallucinations: no auditory hallucinations and no visual hallucinations Cognition: recent memory grossly intact, attention grossly intact and language grossly intact Estimated Intelligence: consistent with education level Insight: + fair insight Judgement: + fair judgement Vital Signs (Past 24 Hours) Last Vital Signs Temp 36.7 C 02/25/20 06:18 Pulse 85 02/25/20 06:19 Resp 18 02/25/20 06:18 BP 106/70 02/25/20 06:19 Pulse Ox 98 02/20/20 20:35 Results & Data ([facility]) Laboratory Results Laboratory Results - last 24 hr 02/20/20 16:52 Urine MDEA negative MDMA negative Urine MDMA negative U Marijuana THC Carboxy 53 H Drug Screen Comment SEE NOTE Current Inpatient Medications Current Inpatient Medications: Current Inpatient Medications Acetaminophen (Acetaminophen 325 Mg Tab) 650 mg PO Q4H PRN PRN Reason: Headache or Minor Fever Stop: 03/21/20 19:13 Last Admin: 02/21/20 10:39 Dose: 650 mg Documented by: Al Hydrox/Mg Hydrox/Simethicone (Aluminum/Magnesium Susp 30 Ml Udc) 30 ml PO Q4H PRN PRN Reason: GI Upset Stop: 03/21/20 19:13 Betamethasone/Clotrimazole (Clotrimazole/Betamethasone Cr 15 Gm Tube) 1 appln EXT BID PRN PRN Reason: Rash Stop: 03/24/20 09:29 Last Admin: 02/23/20 13:38 Dose: 1 appln Documented by: Bismuth Subsalicylate (Bismuth Subsalicylate Per Ml Omnicell Charge) 15 ml PO PRN PRN PRN Reason: Loose Stool Stop: 03/21/20 19:13 Celecoxib (Celebrex 200 Mg Cap) 200 mg PO QAM [facility] Stop: 03/22/20 08:59 Last Admin: 02/25/20 09:22 Dose: 200 mg Documented by: Escitalopram Oxalate (Escitalopram Oxalate 20 Mg Tab) 20 mg PO HS [facility] Stop: 03/21/20 21:59 Last Admin: 02/24/20 21:00 Dose: 20 mg Documented by: Magnesium Hydroxide (Magnesium Hydroxide Susp 30 Ml Udc) 30 ml PO DAILY PRN PRN Reason: Constipation Stop: 03/21/20 19:13 Pantoprazole Sodium (Pantoprazole 40 Mg Tab) 40 mg PO QPM KANDI Stop: 03/21/20 20:59 Last Admin: 02/24/20 20:59 Dose: 40 mg Documented by: Perphenazine (Perphenazine 2 Mg Tablet) 8 mg PO DAILY PRN PRN Reason: Agitation Stop: 03/21/20 20:34 Last Admin: 02/23/20 15:46 Dose: 8 mg Documented by: Perphenazine (Perphenazine 2 Mg Tablet) 4 mg PO BIDM [facility] Stop: 03/26/20 17:44 Polyethylene Glycol (Polyethylene (Miralax) 17 Gm Pack) 17 gm PO DAILY PRN PRN Reason: Constipation Stop: 03/21/20 17:18 Last Admin: 02/23/20 09:09 Dose: 17 gm Documented by: Propranolol HCl (Propranolol Hcl 10 Mg Tab) 10 mg PO QID PRN PRN Reason: Anxiety Stop: 03/21/20 20:22 Last Admin: 02/24/20 21:04 Dose: 10 mg Documented by: Propranolol HCl (Propranolol Hcl 10 Mg Tab) 10 mg PO BIDM KANDI Stop: 03/26/20 17:44 Sodium Chloride (Sodium Chloride 0.65% Na Soln 45 Ml ([place]ata[place])) 1 - 2 sprays NA PRN PRN PRN Reason: Nasal Dryness/Congestion Stop: 03/21/20 19:13 Sucralfate (Sucralfate 1 Gm Tab) 1 gm PO ACHS KANDI Stop: 03/21/20 21:59 Last Admin: 02/25/20 12:13 Dose: 1 gm Documented by: Trazodone HCl (Trazodone Hcl 50 Mg Tab) 50 mg PO HS PRN PRN Reason: Sleep Stop: 03/21/20 20:22 Last Admin: 02/24/20 23:30 Dose: 50 mg Documented by: Mental Health & Subst Abuse Tx Psychiatrist Name of Psychiatrist: Sharmila Patel Psychiatrist's Date of Appointment with Psychiatrist: 03/06/20 Time of Appointment with Psychiatrist: 3:30 p.m. Psychiatric Appointment Comment: [facility] Therapist Name of Therapist: Karlene Abraham LCSW Therapist's Date of Therapist Appointment: 02/26/20 Time of Therapist Appointment: 2:00 p.m. Therapy Appointment Comment: [address] [place] [facility] [address] Dope Heater Name of Dope Heater: SARY Barrios Phone Number for Dope Heater: [phone] Date of Appointment with Dope Heater: 02/27/20 Time of Appointment with Dope Heater: 1:00 p.m. Post Discharge Appointments Primary Care Physician Name Of Family Doctor: SHANE Marie Primary [facility] Time of Appointment with PCP: Follow up as needed Provider Appointment Comment: [address] [place] [address] Partial [place] Psych Rehab [place] [facility] [place] [facility] [place] [facility] Date of Appointment at Partial or Psych Rehab: 02/29/20 Time of Appointment at Partial or Psych Rehab: 2:30 p.m. Contact Information Discharge Discharge Address: [address] [place] [address], [place] [address]
[2020-02-25] MEDS: PROPRANOLOL HCL 10 MG TAB PO SCH (17:16)
[2020-02-25] MEDS: PROPRANOLOL HCL 10 MG TAB PO PRN (19:16)
[2020-02-25] MEDS: PANTOprazole 40 MG TAB PO SCH (21:55)
[2020-02-25] MEDS: ESCITALOPRAM OXALATE 20 MG TAB PO SCH (21:55)
[2020-02-25] MEDS: TRAZODONE HCL 50 MG TAB PO PRN (23:46)
[2020-02-26] MEDS: CeleBREX 200 MG CAP PO SCH (09:14)
[2020-02-26] MEDS: SUCRALFATE 1 GM TAB PO SCH (09:14)
[2020-02-26] MEDS: PERPHENAZINE 2 MG TABLET PO SCH (09:14)
[2020-02-26] MEDS: PROPRANOLOL HCL 10 MG TAB PO SCH (09:14)
--- NOTE | 2020-02-26 15:37 | Discharge Summary ---
Date of Service February 26, 2020 History of Present Illness Patient is known to us from previous hospitalization, last here in 08/2018. She presented to the ER last night (02/20/2020) with her boyfriend due to suicidal ideation with plans to overdose or hang herself. She reported she had access to pills she could overdose on. She reported a long history of trauma, with an increase in "dark thoughts" for the past month, but had been able to safety plan until yesterday. She reported frequent dissociation, poor sleep, decreased appetite, and increased nightmares. She reported feeling out of control with an increase in suicidal thoughts, crying spells, and was unable to contract for safety outside of the hospital. She reported alternate identities that she feels unable to control, stating she cannot always "be in my core self," and that her other identities "talk over me in my head." She has been isolating more, has decreased motivation, and feels fearful of "people and women." She reported missing doses of medications due to poor focus, and requested inpatient treatment. Admission labs: Normal CBC, CMP, TSH, negative test and UA, and UDS + MDMA and THC. She was continued on home medications including escitalopram 20 mg daily, propranolol 10 mg 4 times daily as needed, perphena zine 8 mg daily as needed, and trazodone 50 mg at bedtime PRN. On my assessment, she reports worsening mood, more frequent dissociative episodes, unable to fall asleep at night, feeling disoriented, unable to ground herself, and more intense SI with multiple plans over the past couple of weeks. She did not feel safe at home so came to the ER. She denies recent medication changes. She says perphenazine was started at [facility] and she takes it when "I can't get the parts quieted down." States she often isn't aware enough of her symptoms to take the prn at home. [place] she was going to act on thoughts to harm herself, "I was going to cut myself open," and was also thinking it would be "comforting" to hang herself. Is not aware of any acute stressors that exacerbated her symptoms, but says "I get triggered by things and don't recognize it. I was triggered today, I don't want to say why, just something that reminded me of the past." Physical Exam Psychiatric Orientation: alert, oriented x 3 and cooperative Apperance: appropriately dressed, appropriately groomed and appeared stated age Eye Contact: good eye contact Motor Behavior: steady gait and station Speech: normal rate/rhythm/volume of speech Affect: euthymic affect "Much better." Thought Process: goal directed thought process and linear/logical thought process Thought Content: reality based without delusions Suicidal Thoughts: denies suicidal thoughts Patient reports that she has "alters" that may have suicidal impulses, but she notes that these "alters" are not currently in control and she feels that she is able to dissipate suicidal impulses should they emerge, and has a fairly detailed plan for safety geared towards community reentry. Homicidal Thoughts: denies homicidal thoughts Hallucinations: no auditory hallucinations and no visual hallucinations Cognition: recent memory grossly intact, remote memory grossly intact, attention grossly intact and language grossly intact Estimated Intelligence: + above average estimated intelligence Insight: + fair insight Judgement: good judgement Vital Signs (Past 24 Hours) Last Vital Signs Temp 36.6 C 02/26/20 10:02 Pulse 88 02/26/20 10:02 Resp 16 02/26/20 10:02 BP 103/64 02/26/20 10:02 Pulse Ox 98 02/26/20 10:02 Principal Diagnosis Major depressive disorder Psychiatric Data During the course of hospitalization the patient was offered various modalities of psychiatric treatment and education. These included individual, group, activity, milieu, and family therapy. Family therapy was conducted telephonically. The patient was continued on her usual outpatient medications. However, her dose of perphenazine was changed from 8 mg daily "as needed" to perphenazine 8 mg daily as a standing dose and then to perphenazine 4 mg twice a day when the patient experienced excess sedation in response to perphenazine 8 mg daily. Patient reported that she felt "much better" taking perphenazine as a standing dose medication and said that she had not realized how much it was helping her when she was just taking it "for agitation" as needed prior to admission. The patient's thoughts of suicide seem to have resolved fairly quickly. During individual, group, and activity therapies emphasis was placed on helping the patient develop improved individual coping strategies. She tended to focus on her "alters" within the context of her belief that she has dissociative identity disorder, and that she is continuing to seek to integrate the alters. Patient reports that she feels that progress in this direction has been made. The patient notes that she feels that she is ready to continue her various forms of outpatient therapy, which she participates in daily on an outpatient basis. Her affect remained bright, and she participated actively in the various therapies provided. Sleep and appetite were described as "good." There was no evidence of any psychotic features. By the time of discharge, the treatment team agreed that the patient's condition had improved to the degree that she was now able to safely continue her psychiatric treatment on an outpatient basis. Day of Discharge Assessment On the day of discharge, the patient was found to be pleasant and cooperative. She was appropriately dressed and groomed. Her speech was delivered at a normal rate and rhythm and was spontaneous. There were no abnormal involuntary movements and the patient sat comfortably throughout the discharge assessment. The patient describes her mood as "much better," and "good." The patient's affect was euthymic. She smiled appropriately a number of times during the encounter and spoke of being eager to return home. The patient's thought processes demonstrated tight associations. Her thought content was devoid of any evidence of psychotic features. She continues to have reference to "alters" of which she says she is aware and that she is working to integrate. (The patient had been hospitalized at [facility] in [place].) There is no evidence of any perceptual disturbances. Patient reports that she has no further thoughts of suicide and says that her safety plan includes immediately reporting thoughts of suicide to her therapists or family. She also indicates that the thoughts of suicide that precipitated the current admission were reported as "thoughts," such as a thought of hanging herself or taking an overdose, but without associated active plan or intent. Patient also reported that she was having no thoughts of causing physical harm to the person or property of others. Her insight is assessed as being fair, and her judgment is noted to be good. The patient's intelligence is estimated to be above average. Transition of Care Transition Of Care Record: was reviewed with the patient Advance Directives Advance Directives Information Provided: Yes Advance Directives: No Mental Health Advance Directive: No Advance Directives on File: No Living Will: No Power of Floor Layer: No Advance Directives Reason:: Declines as Mental Health Visit. Risk Factors Assessment The patient has a history of past suicide attempts or suicide gestures. She also has a psychiatric diagnosis. Mitigating factors include motivation to recovery, active involvement in treatment, and a good rapport with her various outpatient providers Male: No : Yes Do You Have Access To A Gun?: No Health Problems: Yes Mental Health Diagnoses: Yes Substance Use Disorders: No Previous Attempt: Yes Previous Psychiatric Hospitalization: Yes Hopelessness: No Smoker: Yes Protective Factors Assessment Baptism Beliefs: No : No (lives with boyfriend) Responsible for Young Children: No Employed: No Stable Relationships: Yes Supportive Family: Yes Good Rapport with Provider: Yes Absence of Any Risk Factors Above: No Tobacco Cessation at Discharge Tobacco Cessation Medication Prescribed at Discharge: Not Applicable/Non-Smoker Total Time Total Time Spent: Greater Than 30 Minutes Total Time Includes: Examination of the patient, Discharge Planning and Communication with other providers Discharge Data Lab Results 02/20/20 02/20/20 02/20/20 16:52 16:52 16:52 WBC RBC Hgb Hct MCV MCH MCHC RDW Std Deviation RDW Coeff of Paul Plt Count MPV Immature Gran % (Auto) Neut % (Auto) Lymph % (Auto) Frontier % (Auto) Eos % (Auto) Baso % (Auto) Neut # (Auto) Lymph # (Auto) Frontier # (Auto) Eos # (Auto) Baso # (Auto) Immature Gran # (Auto) Sodium Potassium Chloride Carbon Dioxide Anion Gap BUN Creatinine Est Cr Clr Drug Dosing Est GFR ( Amer) Est GFR (Non-Af Amer) BUN/Creatinine Ratio Glucose Calcium Total Bilirubin AST ALT Alkaline Phosphatase Total Protein Albumin Globulin Albumin/Globulin Ratio TSH HCG, Qual Urine Color Yellow Urine Appearance Clear Urine pH 7.5 Ur Specific [place] 1.016 Urine Protein Negative Urine Glucose (UA) Negative Urine Ketones Negative Urine Blood Negative Urine Nitrite Negative Urine Bilirubin Negative Urine Urobilinogen Negative Ur Leukocyte Esterase Negative Salicylates Urine Opiates Screen Neg Ur Methadone, Qual Neg Acetaminophen Urine Barbiturates Neg Ur Phencyclidine (PCP) Neg U Amphetamin/Meth Scrn Neg Urine MDEA negative MDMA (Ecstasy) Screen Pos H MDMA negative Urine MDMA negative U Benzodiazepines Scrn Neg Ur Cocaine Metabolite Neg U Marijuana (THC) Screen Pos H U Marijuana THC Carboxy 53 H Drug Screen Comment SEE NOTE Ethyl Alcohol mg/dL 02/20/20 02/20/20 02/20/20 17:28 17:28 17:28 WBC 6.22 RBC 4.41 Hgb 14.1 Hct 41.1 MCV 93.2 MCH 32.0 MCHC 34.3 RDW Std Deviation 41.0 RDW Coeff of Paul 12.1 Plt Count 251 MPV 11.5 H Immature Gran % (Auto) 0.2 Neut % (Auto) 59.3 Lymph % (Auto) 29.3 Frontier % (Auto) 7.7 Eos % (Auto) 2.9 Baso % (Auto) 0.6 Neut # (Auto) 3.69 Lymph # (Auto) 1.82 Frontier # (Auto) 0.48 Eos # (Auto) 0.18 Baso # (Auto) 0.04 Immature Gran # (Auto) 0.01 Sodium 138 Potassium 3.7 Chloride 107 Carbon Dioxide 24 Anion Gap 7.0 BUN 9 Creatinine 0.71 Est Cr Clr Drug Dosing 119.7 Est GFR ( Amer) 123.5 Est GFR (Non-Af Amer) 106.5 BUN/Creatinine Ratio 13.3 Glucose 110 H Calcium 9.2 Total Bilirubin 0.7 AST 14 L ALT 19 Alkaline Phosphatase 58 Total Protein 7.8 Albumin 3.7 Globulin 4.1 H Albumin/Globulin Ratio 0.9 TSH 0.826 HCG, Qual Urine Color Urine Appearance Urine pH Ur Specific [place] Urine Protein Urine Glucose (UA) Urine Ketones Urine Blood Urine Nitrite Urine Bilirubin Urine Urobilinogen Ur Leukocyte Esterase Salicylates < 1.7 L Urine Opiates Screen Ur Methadone, Qual Acetaminophen > 2 L Urine Barbiturates Ur Phencyclidine (PCP) U Amphetamin/Meth Scrn Urine MDEA MDMA (Ecstasy) Screen MDMA Urine MDMA U Benzodiazepines Scrn Ur Cocaine Metabolite U Marijuana (THC) Screen U Marijuana THC Carboxy Drug Screen Comment Ethyl Alcohol mg/dL 02/20/20 02/20/20 17:28 17:28 WBC RBC Hgb Hct MCV MCH MCHC RDW Std Deviation RDW Coeff of Paul Plt Count MPV Immature Gran % (Auto) Neut % (Auto) Lymph % (Auto) Frontier % (Auto) Eos % (Auto) Baso % (Auto) Neut # (Auto) Lymph # (Auto) Frontier # (Auto) Eos # (Auto) Baso # (Auto) Immature Gran # (Auto) Sodium Potassium Chloride Carbon Dioxide Anion Gap BUN Creatinine Est Cr Clr Drug Dosing Est GFR ( Amer) Est GFR (Non-Af Amer) BUN/Creatinine Ratio Glucose Calcium Total Bilirubin AST ALT Alkaline Phosphatase Total Protein Albumin Globulin Albumin/Globulin Ratio TSH HCG, Qual Negative Urine Color Urine Appearance Urine pH Ur Specific [place] Urine Protein Urine Glucose (UA) Urine Ketones Urine Blood Urine Nitrite Urine Bilirubin Urine Urobilinogen Ur Leukocyte Esterase Salicylates Urine Opiates Screen Ur Methadone, Qual Acetaminophen Urine Barbiturates Ur Phencyclidine (PCP) U Amphetamin/Meth Scrn Urine MDEA MDMA (Ecstasy) Screen MDMA Urine MDMA U Benzodiazepines Scrn Ur Cocaine Metabolite U Marijuana (THC) Screen U Marijuana THC Carboxy Drug Screen Comment Ethyl Alcohol mg/dL < 3.0 Hospital Course (1) Suicidal ideations: 02/20 - Continue voluntary IP treatment, suicide checks for safety. Attend groups and therapy and work on healthy coping skills and safety plan. Family meeting with boyfriend - recommend all medications be locked and dispensed to her daily until stabilizes. 02/21 - Continue as above, pt reports SI is "not as intense" today - Family meeting with boyfriend - anticipate this will need scheduled sometime this weekend 02/24 reviewed 02/25 -The patient has for the past several days consistently reported the absence of any thoughts of suicide. She contracts for safety, and says that she feels that she will be continuously able to report suicidal thoughts to her therapist or, if the therapist are not immediately available, to her family or boyfriend. (2) PTSD (post-traumatic stress disorder): 02/20 - Continue escitalopram, propranolol and perphenazine prn which she finds helpful -Coordinate w/ outpatient treatment providers 02/24--perhenazine is now standing order and will add BID propranolol. Will shift to am and early pm dosing rather than 2nd doses of these meds at hs. 02/25 -the patient reports that standing dose perphenazine 4 mg twice a day has been quite effective in managing her anxiety and has helped keep her "more integrated." (3) Major depressive disorder, recurrent episode with anxious distress: 02/20 - Continue meds as above 02/24 Reviewed. 02/25 -the patient reports that she is continuing to respond favorably to S- Citalopram and trazodone as prescribed. (4) Dissociative identity disorder: continue meds as above, work on coping skills, c/w OP providers 02/21 - Continue as above, patient reports desire to work on recognition of when to utilize prn medications 02/24 Reviewed. (5) Constipation: 02/20 - Continue sucralfate, miralax prn 02/24 reviewed 02/25 -described by the patient has improved. (6) GERD without esophagitis: 02/20 - continue PPI 02/24 reviewed 02/25 --reportedly controlled with medication. (7) Vertigo: 02/20 - Continue meclizine 02/24 Reviewed. 02/25 --meclizine prescribed as needed. The patient's vertigo reportedly is currently under reasonably good control. Mental Health & Subst Abuse Tx Psychiatrist Name of Psychiatrist: Sharmila Patel Psychiatrist's Date of Appointment with Psychiatrist: 03/06/20 Time of Appointment with Psychiatrist: 3:30 p.m. Psychiatric Appointment Comment: [id number] [facility] Psychiatrist Release of Information: Obtained, Reviewed and Signed Therapist Name of Therapist: Karlene Abraham LCSW Therapist's Date of Therapist Appointment: 02/26/20 Time of Therapist Appointment: 2:00 p.m. Therapy Appointment Comment: [address] [facility], [place] [address] Therapist Release of Information: Obtained, Reviewed and Signed Tuber Operator Name of Tuber Operator: SARY Barrios Phone Number for Tuber Operator: [phone] Date of Appointment with Tuber Operator: 02/27/20 Time of Appointment with Tuber Operator: 1:00 p.m. (will call you) Case Management Appointment Comment: Will return to your ongoing schedule Tuber Operator Release of Information: Obtained, Reviewed and Signed Post Discharge Appointments Primary Care Physician Name Of Family Doctor: SHANE Marie Primary Care Time of Appointment with PCP: Follow up as needed Provider Appointment Comment: [address] [place] [address] Primary Care Release of Information: Obtained, Reviewed and Signed Partial or Psych Rehab Name of Partial or Psych Rehab: [facility] - Krista Date of Appointment at Partial or Psych Rehab: 02/29/20 Time of Appointment at Partial or Psych Rehab: 2:30 p.m. Partial or Psych Rehab Appointment Comment: Will return to your ongoing schedule Release of Information for Partial or Psych Rehab: Obtained, Reviewed and Signed Smoking Cessation Counseling Tobacco Cessation Medication Prescribed at Discharge: Not Applicable/Non-Smoker Contact Information Discharge Discharge Address: [place] [address] Discharge Plan Discharge Items Patient Disposition: Home - Self-Care Reason For Visit: MDD Discharge Diagnosis: Major Depressive Disorder Activity: Resume your previous activity Non-emergency contact: Primary Care Provider, Psychiatrist and Therapist Call non-emergency contact if: you have any medication questions and your symptoms worsen Follow-up/Referrals: Rivera Marie MD [Primary Care Provider] - Diet: Regular Addtl Attending Provider Instructions: SPECIAL CARE INSTRUCTIONS: 1. Follow through with your scheduled aftercare appointments. If unable to keep an appointment, please call to reschedule. 2. Take your medication only as prescribed. Medication should not be changed or stopped without the approval of your doctor. In the event of worsening symptoms or concerns about side effects, contact your doctor immediately. 3. Utilize new healthy coping skills, anger management skills, and stress management skills learned during your hospitalization. Journal feelings and process them with a support person. Identify stressors or situations that may result in relapse, deterioration or inappropriate behaviors and develop a plan to deal with those issues. 4. If your coping skills are ineffective and you are in crisis, contact your outpatient providers for direction. If unable to reach your providers, please call the [facility] CRISIS LINE AT , go to the [facility] walk-in center at [address], [address], [place], or go to the closest Emergency Room. 5. Avoid alcohol and un-prescribed drugs. 6. You have been provided with the Mental Health Advance Directives Pamphlet for your review. AFTERCARE APPOINTMENTS: * Please call your insurance company prior to your scheduled appointment to confirm your aftercare providers are covered. Take your insurance information to your appointments. WHO TO CALL AND WHEN: Medical Emergencies: For questions or emergencies related to your hospital stay, please contact the Inpatient Behavioral Health Unit at [phone]. A [employer] financial[employer] developer is on-call 10/01 for the Behavioral Health Unit for emergencies At any time you feel your situation is an emergency, you may also call 911 immediately. Pending Studies at Discharge: No Stand-Alone Forms: My [facility] [employer], Smoking Cessation, Suicide Prevention Resources Medications and DC Order Prescriptions: New perphenazine 2 mg Tablet 4 mg PO BIDM Qty: 60 RF: 0 propranolol 10 mg Tablet 10 mg PO BIDM Qty: 60 RF: 0 Continued omeprazole 20 mg capsule,delayed release(DR/EC) 20 mg PO QPM Qty: 90 RF: 3 meloxicam 15 mg tablet 15 mg PO DAILY Qty: 30 RF: 3 trazodone 50 mg tablet 50 mg PO HS PRN (Reason: Sleep) RF: 0 propranolol 10 mg tablet 10 mg PO QID PRN (Reason: Anxiety) RF: 0 perphenazine 8 mg tablet 8 mg PO DAILY PRN (Reason: Agitation) RF: 0 escitalopram oxalate 20 mg Tablet 20 mg PO HS RF: 0 Medical Marijauna 1 dose PO UD PRN (Reason: PAIN/ANXIETY) RF: 0 sucralfate [Carafate] 1 gram tablet 1 gm PO ACHS Qty: 40 RF: 1 meclizine 25 mg tablet 12.5 mg PO DAILY PRN (Reason: Vertigo) RF: 0 Discontinued clotrimazole-betamethasone 1-0.05 % cream 1 appln TOP BID Qty: 15 RF: 0 Discharge Orders: Discharge Order (Routine); Ordered 02/26/20 Ordered By: Russ Wills Admission Data Admit Date/Time: 02/20/20 19:14 Attending Provider: Nadia Harper Admit Provider: Dong Rubio Primary Care Provider: Rivera Marie Other Interventions: Discharge Summary Assessment (RN) Last Done: 02/26/20 10:02 PSY Interdisciplinary Discharge Planning Last Done: 02/26/20 10:04 C[place] [address] D/C day mgmt > 30 min Patient Type Established History Expanded Problem Focused Exam Expanded Problem Focused Medical Decision Making Moderate Complexity Diagnoses Suicidal ideations R45.851 PTSD (post-traumatic stress disorder) F43.10 Major depressive disorder, recurrent episode with anxious distress F33.9 Dissociative identity disorder F44.81 Constipation K59.00 GERD without esophagitis K21.9 Vertigo R42 Time Spent (min) 60
== END 2020-02-26 10:30 | disposition home or self-care (01) | DRG 885 ==
LOC: ED 16:35 → 3S 19:14